=== PATIENT | male | born 1950 | race Caucasian/White ===

== ENCOUNTER → 2017-11-11 | Outpatient (CLI) | payer MEDICARE, BC, SELFPAY | PROVIDERS: Visit Provider Internal Medicine Interventional Cardiology | DX: E78.00 Pure hypercholesterolemia, unspecified (principal) | CPT/HCPCS: 36415; 80061; 80076 ==

== ENCOUNTER 2017-11-25 08:19 | Day surgery (SDC) | payer MEDICARE, BC, SELFPAY ==
[2017-11-18 12:07] VITALS: BMI 23.0
--- NOTE | 2017-11-25 08:42 | SUR.PREOP ---
Asked Julita Cowart CRNA if he wanted labs. AFSHIN did not want them
[2017-11-25 08:54] VITALS: BP 130/72; PULSE 60; RESP 16; TEMP 36.2; O2SAT 98
[2017-11-25 09:00] LABS: POC Glucose,Bedside 121 mg/dL
--- NOTE | 2017-11-25 09:35 | P.PN_ITS ---
[facility] Anesthesia Checklist - Patient Identification Patient Identification: Arm Band - Structural Data Admitted From: Home Planned Operative Procedure/s: excision neoplasm right ear Consent for Planned Operative Procedure(s) Verified: Yes Verified Documents: Surgical Consent, History and Physical - NPO Status Verified Time NPO: 00:00 - Additional verifications Anesthesia Reactions: No - Airway Assessment C-Spine Mobility Assessed: Yes (MP2) TMJ Mobility Assessed: Yes Dentition: Good Dentition - Anesthesia Plan Anesthesia Risk discussed: Yes Anesthesia Plan: Verified ASA Class: III Anesthesia Type: MAC [facility] Anesthesia HX I have reviewed the patient's past medical history: Yes Medical History: Reports:: Coronary Artery Disease, Diabetes Mellitus Type 2 ( NIDDM), Hyperlipidemia, Hypertension, MRSA (NASAL 2013) Denies:: Cancer, Diabetes Mellitus Type 1, Seizures (vagal episode at dentist ) Other Medical History: Denies: Blood Transfusion Reaction Comment: Multiple Coronary Stents Other Surgeries: Yes: Sinus Surgery. No: Pacemaker Amputation: No Fractures: No Comment: Coronary Stents *Family Hx:: Hypertension
[2017-11-25 11:00] VITALS: BP 128/66; PULSE 58; RESP 18; TEMP 36.7; O2SAT 99
[2017-11-25 11:15] VITALS: BP 121/68; PULSE 61; RESP 18; O2SAT 96
--- NOTE | 2017-11-25 13:52 | HMH.OPNOTE ---
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 The perilesional area was infiltrated with 2 cc of 2% lidocaine containing epinephrine. The lesion on the superior aspect of the right ear extending posteriorly was marked out and the key out measured 1.8 cm. The key out was incised and the lesion was excised along the level of the cartilage. An anterior and posterior incisions were made, and a tissue rearrangement Z-plasty repair was done with interrupted 5-0 nylon sutures. A Dermabond dressing was applied. Condition: stable Disposition: same day Complications:: none
--- NOTE | 2017-11-25 13:56 | P.OP_ITS ---
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 The perilesional area was infiltrated with 2 cc of 2% lidocaine containing epinephrine. The lesion on the superior aspect of the right ear extending posteriorly was marked out and the key out measured 1.8 cm. The key out was incised and the lesion was excised along the level of the cartilage. An anterior and posterior incisions were made, and a tissue rearrangement Z-plasty repair was done with interrupted 5-0 nylon sutures. A Dermabond dressing was applied. Condition: stable Disposition: same day Complications:: none
[2017-11-25 14:43] VITALS: BP 123/66; PULSE 60; RESP 18; O2SAT 96
== END 2017-11-25 11:30 | disposition home or self-care (01) ==
LOC: OR 08:23
PROVIDERS: PCP Emergency Medicine; Visit Provider Otolaryngology
DX: C44.212 Basal cell carcinoma of skin of right ear and external auricular canal (principal); Z79.899 Other long term (current) drug therapy
CPT/HCPCS: 14060; 82962; 88305; 96374; 96375

== ENCOUNTER → 2018-02-14 08:56 | Outpatient (CLI) | payer MEDICARE, BC, SELFPAY ==
[2018-02-14 09:18] LABS: Anion Gap 11.2 mEq/L (5-15); Blood Urea Nitrogen 14 mg/dL (7-18); Carbon Dioxide 30 mmol/L (21.0-32.0); Chloride 103 mmol/L (98-107); Estimated Glomerular Filt Rate 97 ml/min (>60); GFR (African American) 117 ML/MIN (>60); Glucose 139 mg/dL (74-106); Potassium 4.2 mmoL/L (3.5-5.1); Sodium 140 mmol/L (136-145)
[2018-02-14 10:47] LABS: Hemoglobin A1C 6.2 % (0.0-7.0)
== END ==
PROVIDERS: Visit Provider Internal Medicine Interventional Cardiology
DX: E11.9 Type 2 diabetes mellitus without complications (principal); I25.10 Atherosclerotic heart disease of native coronary artery without angina pectoris
CPT/HCPCS: 36415; 80048; 83036

== ENCOUNTER → 2018-04-28 08:19 | Outpatient (CLI) | payer MEDICARE, BC, SELFPAY ==
[2018-04-28 10:33] LABS: Alanine Aminotransferase 31 U/L (12-78); Albumin Level 3.7 gm/dL (3.4-5.0); Alkaline Phosphatase 39 U/L (46-116); Aspartate Amino Transferase 17 U/L (15-37); Bilirubin,Direct 0.2 mg/dL (0.0-0.2); Bilirubin,Indirect 0.3 mg/dL (0.0-0.9); Bilirubin,Total 0.5 mg/dL (0.2-1.0); Chol/HDL Ratio 1.5 (1-3.5); Cholesterol 88 mg/dL (140-200); HDL Cholesterol 59 mg/dL (27-67); LDL Cholesterol 20 mg/dL (0-130); Total Protein,Serum 6.4 gm/dL (6.4-8.2); Triglycerides 46 mg/dL (30-200); VLDL Cholesterol 9 mg/dL (0-40)
== END ==
PROVIDERS: Visit Provider Internal Medicine Interventional Cardiology
DX: E78.5 Hyperlipidemia, unspecified (principal)
CPT/HCPCS: 36415; 80061; 80076

== ENCOUNTER → 2018-10-18 10:29 | Outpatient (CLI) | payer MEDICARE, BC, SELFPAY ==
[2018-10-18 11:31] LABS: Bilirubin,Direct 0.2 mg/dL (0.0-0.2)
[2018-10-18 11:41] LABS: Basophils % 0.5 % (0.1-2.0); Eosinophils # 0.1 K/mm3 (0.0-0.4); Eosinophils % 2.9 % (0.1-12.0); Hematocrit 45.4 % (42.0-52.0); Hemoglobin 14.6 g/dL (14.1-18.0); Lymphocytes # 1.6 K/mm3 (0.7-4.5); Lymphocytes % 34.9 % (10-50); Mean Corpuscular HGB Conc 32.1 g/dL (31.8-35.4); Mean Corpuscular Hemoglobin 31.9 pg (27.0-31.2); Mean Corpuscular Volume 99.4 fl (80-94); Mean Platelet Volume 6.8 fl (7.4-10.4); Monocytes # 0.3 K/mm3 (0.1-1.0); Neutrophils # 2.5 K/mm3 (1.8-7.8); Neutrophils % 55.6 % (37.0-80.0); Platelet Count 223 K/mm3 (142-424); Red Blood Count 4.56 M/mm3 (4.60-6.20); Red Cell Distribution Width 13.2 % (11.5-17.5); White Blood Count 4.5 K/mm3 (4.8-10.8)
[2018-10-18 11:45] LABS: Hemoglobin A1C 6.2 % (0.0-7.0)
[2018-10-18 11:56] LABS: Alanine Aminotransferase 39 U/L (12-78); Albumin/Globulin Ratio 1.4 (1.1-1.8); Alkaline Phosphatase 41 U/L (46-116); Anion Gap 13.6 mEq/L (5-15); Aspartate Amino Transferase 16 U/L (15-37); Bilirubin,Total 0.7 mg/dL (0.2-1.0); Blood Urea Nitrogen 9 mg/dL (7-18); Carbon Dioxide 28 mmol/L (21.0-32.0); Chloride 101 mmol/L (98-107); Chol/HDL Ratio 1.7 (1-3.5); Cholesterol 114 mg/dL (140-200); Creatinine,Serum 0.76 mg/dL (0.70-1.30); Estimated Glomerular Filt Rate 102 ml/min (>60); Free T4 (Free Thyroxine) 0.76 ng/dl (0.76-1.46); GFR (African American) 124 ML/MIN (>60); Globulin 2.9 gm/dl (1.3-3.2); Glucose 128 mg/dL (74-106); HDL Cholesterol 66 mg/dL (27-67); LDL Cholesterol 36 mg/dL (0-130); Potassium 4.6 mmoL/L (3.5-5.1); Sodium 138 mmol/L (136-145); Thyroid Stimulating Hormone 0.89 uIU/ml (0.358-3.740); Total Protein,Serum 6.9 gm/dL (6.4-8.2); Triglycerides 60 mg/dL (30-200); VLDL Cholesterol 12 mg/dL (0-40)
[2018-10-19 12:20] LABS: Hep A Ab, IgM Negative (Negative); Hepatitis B Core Antibody IgM Negative (Negative); Hepatitis B Surface Antigen Negative (Negative)
[2018-10-19 14:22] LABS: Hepatitis C Antibody <0.1 s/co ratio (0.0-0.9); PSA, Free 0.38 ng/mL; Prostate Specific Ag 1.9 ng/mL (0.0-4.0); Vitamin D 25 Hydroxy 32.8 ng/mL (30.0-100.0)
== END ==
PROVIDERS: Internal Medicine Interventional Cardiology; Visit Provider Emergency Medicine
DX: E78.00 Pure hypercholesterolemia, unspecified (principal); Z79.899 Other long term (current) drug therapy; E11.9 Type 2 diabetes mellitus without complications; R53.83 Other fatigue; I25.10 Atherosclerotic heart disease of native coronary artery without angina pectoris
CPT/HCPCS: 36415; 80053; 80061; 80074; 82248; 82652; 83036; 84153; 84154; 84439; 84443; 85025

== ENCOUNTER → 2019-01-07 11:06 | Outpatient (CLI) | payer MEDICARE, BC, SELFPAY ==
[2019-01-07 12:56] LABS: Alanine Aminotransferase 41 U/L (12-78); Albumin Level 3.9 gm/dL (3.4-5.0); Alkaline Phosphatase 46 U/L (46-116); Aspartate Amino Transferase 17 U/L (15-37); Bilirubin,Direct 0.2 mg/dL (0.0-0.2); Bilirubin,Indirect 0.6 mg/dL (0.0-0.9); Bilirubin,Total 0.8 mg/dL (0.2-1.0); Chol/HDL Ratio 2.8 (1-3.5); Cholesterol 148 mg/dL (140-200); HDL Cholesterol 53 mg/dL (27-67); LDL Cholesterol 75 mg/dL (0-130); Total Protein,Serum 6.9 gm/dL (6.4-8.2); Triglycerides 99 mg/dL (30-200); VLDL Cholesterol 20 mg/dL (0-40)
== END ==
PROVIDERS: Visit Provider Internal Medicine Interventional Cardiology
DX: E78.00 Pure hypercholesterolemia, unspecified (principal)
CPT/HCPCS: 36415; 80061; 80076

== ENCOUNTER → 2019-04-06 08:29 | Outpatient (CLI) | payer MEDICARE, BC, SELFPAY ==
[2019-04-06 10:13] LABS: Alanine Aminotransferase 33 U/L (12-78); Albumin Level 3.7 gm/dL (3.4-5.0); Alkaline Phosphatase 37 U/L (46-116); Aspartate Amino Transferase 15 U/L (15-37); Bilirubin,Direct 0.1 mg/dL (0.0-0.2); Bilirubin,Indirect 0.5 mg/dL (0.0-0.9); Bilirubin,Total 0.6 mg/dL (0.2-1.0); Chol/HDL Ratio 3.2 (1-3.5); Cholesterol 154 mg/dL (140-200); HDL Cholesterol 48 mg/dL (27-67); LDL Cholesterol 82 mg/dL (0-130); Total Protein,Serum 6.4 gm/dL (6.4-8.2); Triglycerides 122 mg/dL (30-200); VLDL Cholesterol 24 mg/dL (0-40)
== END ==
PROVIDERS: Visit Provider Internal Medicine Interventional Cardiology
DX: E78.00 Pure hypercholesterolemia, unspecified (principal)
CPT/HCPCS: 36415; 80061; 80076

== ENCOUNTER → 2019-04-24 17:11 | Outpatient (CLI) | payer MEDICARE, BC, SELFPAY ==
[2019-04-24 18:04] LABS: Basophils % 0.9 % (0.1-2.0); Eosinophils # 0.2 K/mm3 (0.0-0.4); Eosinophils % 3.9 % (0.1-12.0); Hemoglobin 14.3 g/dL (14.1-18.0); Lymphocytes # 1.8 K/mm3 (0.7-4.5); Mean Corpuscular HGB Conc 32.6 g/dL (31.8-35.4); Mean Corpuscular Hemoglobin 30.7 pg (27.0-31.2); Mean Corpuscular Volume 94.2 fl (80-94); Mean Platelet Volume 8.6 fl (7.4-10.4); Monocytes # 0.3 K/mm3 (0.1-1.0); Monocytes % 6.9 % (1.7-9.3); Neutrophils # 2.5 K/mm3 (1.8-7.8); Neutrophils % 51.3 % (37.0-80.0); Platelet Count 226 K/mm3 (142-424); Red Blood Count 4.67 M/mm3 (4.60-6.20); Red Cell Distribution Width 12.5 % (11.5-17.5); White Blood Count 4.8 K/mm3 (4.8-10.8)
== END ==
PROVIDERS: Visit Provider Emergency Medicine
DX: E11.9 Type 2 diabetes mellitus without complications (principal); Z79.84 Long term (current) use of oral hypoglycemic drugs
CPT/HCPCS: 83036; 85025

== ENCOUNTER → 2019-08-15 08:31 | Outpatient (CLI) | payer MEDICARE, BC, SELFPAY ==
[2019-08-15 10:41] LABS: Alanine Aminotransferase 58 U/L (12-78); Albumin Level 3.9 gm/dL (3.4-5.0); Alkaline Phosphatase 39 U/L (46-116); Aspartate Amino Transferase 25 U/L (15-37); Bilirubin,Direct 0.1 mg/dL (0.0-0.2); Bilirubin,Indirect 0.4 mg/dL (0.0-0.9); Bilirubin,Total 0.5 mg/dL (0.2-1.0); Chol/HDL Ratio 3.3 (1-3.5); Cholesterol 168 mg/dL (140-200); HDL Cholesterol 51 mg/dL (27-67); LDL Cholesterol 96 mg/dL (0-130); Total Protein,Serum 6.9 gm/dL (6.4-8.2); Triglycerides 103 mg/dL (30-200); VLDL Cholesterol 21 mg/dL (0-40)
== END ==
PROVIDERS: Visit Provider Internal Medicine Interventional Cardiology
DX: E78.00 Pure hypercholesterolemia, unspecified (principal)
CPT/HCPCS: 36415; 80061; 80076

== ENCOUNTER → 2020-01-01 10:29 | Outpatient (CLI) | payer MEDICARE, BC, SELFPAY ==
[2020-01-01 12:12] LABS: Alanine Aminotransferase 31 U/L (21-72); Albumin Level 3.9 g/dL (3.4-5.0); Alkaline Phosphatase 37 U/L (46-116); Aspartate Amino Transferase 18 U/L (15-37); Bilirubin,Direct 0.1 mg/dL (0.0-0.2); Bilirubin,Indirect 0.4 mg/dL (0.0-0.9); Bilirubin,Total 0.5 mg/dL (0.2-1.0); Chol/HDL Ratio 2.7 (1-3.5); Cholesterol 153 mg/dL (140-200); HDL Cholesterol 56 mg/dL (27-67); LDL Cholesterol 79 mg/dL (0-130); Total Protein,Serum 6.9 g/dL (6.4-8.2); Triglycerides 90 mg/dL (30-200); VLDL Cholesterol 18 mg/dL (0-40)
== END ==
PROVIDERS: Visit Provider Nurse Practitioner Acute Care
DX: E78.00 Pure hypercholesterolemia, unspecified (principal)
CPT/HCPCS: 36415; 80061; 80076

== ENCOUNTER → 2020-05-29 07:46 | Outpatient (CLI) | payer MEDICARE, BC, SELFPAY ==
[2020-05-29 08:51] LABS: Alanine Aminotransferase 27 U/L (12-78); Alkaline Phosphatase 33 U/L (38-126); Aspartate Amino Transferase 26 U/L (17-59); Bilirubin,Direct 0.1 mg/dl (0.0-0.4); Bilirubin,Indirect 0.7 mg/dL (0.0-0.9); Bilirubin,Total 0.8 mg/dl (0.2-1.3); Bilirubin,Unconjugated 0.7 mg/dL (0.0-1.1); Cholesterol 156 mg/dl (140-200); Triglycerides 108 mg/dl (30-150); VLDL Cholesterol 22 mg/dL (0-40)
[2020-05-29 08:52] LABS: Albumin Level 4.2 g/dl (3.5-5.0); Chol/HDL Ratio 2.6 (1-3.5); HDL Cholesterol 61 mg/dl (40-60); Total Protein,Serum 6.6 g/dl (6.3-8.2)
== END ==
PROVIDERS: Visit Provider Internal Medicine Interventional Cardiology
DX: E78.00 Pure hypercholesterolemia, unspecified (principal)
CPT/HCPCS: 36415; 80061; 80076

== ENCOUNTER → 2020-08-15 09:05 | Outpatient (CLI) | payer MEDICARE, BC, SELFPAY ==
[2020-08-15 11:10] LABS: Alanine Aminotransferase 30 U/L (12-78); Albumin Level 4.2 g/dl (3.5-5.0); Alkaline Phosphatase 30 U/L (38-126); Aspartate Amino Transferase 26 U/L (17-59); Bilirubin,Direct 0.1 mg/dl (0.0-0.4); Bilirubin,Indirect 0.5 mg/dL (0.0-0.9); Bilirubin,Total 0.6 mg/dl (0.2-1.3); Bilirubin,Unconjugated 0.5 mg/dL (0.0-1.1); Chol/HDL Ratio 1.5 (1-3.5); Cholesterol 91 mg/dl (140-200); HDL Cholesterol 59 mg/dl (40-60); Total Protein,Serum 6.7 g/dl (6.3-8.2); Triglycerides 84 mg/dl (30-150); VLDL Cholesterol 17 mg/dL (0-40)
[2020-08-15 11:27] LABS: Direct LDL Cholesterol < 30.00 mg/dL (100-129)
== END ==
PROVIDERS: Visit Provider Internal Medicine Interventional Cardiology
DX: E78.00 Pure hypercholesterolemia, unspecified (principal)
CPT/HCPCS: 36415; 80061; 80076

== ENCOUNTER → 2020-08-26 15:16 | Outpatient (CLI) | payer MEDICARE, BC, SELFPAY ==
[2020-08-26 15:54] LABS: Basophils % 0.7 % (0.1-2.0); Eosinophils # 0.2 K/mm3 (0.0-0.4); Eosinophils % 3.5 % (0.1-12.0); Hematocrit 44.7 % (42.0-52.0); Hemoglobin 14.3 g/dL (14.1-18.0); Lymphocytes # 1.7 K/mm3 (0.7-4.5); Mean Corpuscular HGB Conc 32.1 g/dL (31.8-35.4); Mean Corpuscular Hemoglobin 32.2 pg (27.0-31.2); Mean Corpuscular Volume 100.3 fl (80-94); Monocytes # 0.3 K/mm3 (0.1-1.0); Monocytes % 6.1 % (1.7-9.3); Neutrophils % 56.7 % (37.0-80.0); Platelet Count 246 K/mm3 (142-424); Red Blood Count 4.46 M/mm3 (4.60-6.20); Red Cell Distribution Width 12.7 % (11.5-17.5); White Blood Count 5.2 K/mm3 (4.8-10.8)
[2020-08-26 16:00] LABS: Alanine Aminotransferase 28 U/L (12-78); Albumin Level 4.4 g/dl (3.5-5.0); Albumin/Globulin Ratio 1.7 (1.1-1.8); Alkaline Phosphatase 45 U/L (38-126); Anion Gap 14.7 mEq/L (5-15); Aspartate Amino Transferase 30 U/L (17-59); Bilirubin,Total 0.8 mg/dl (0.2-1.3); Blood Urea Nitrogen 9 mg/dl (9-20); Calcium 9.6 mg/dl (8.4-10.2); Carbon Dioxide 28 mmol/L (22.0-30.0); Chloride 98 mmol/L (98-107); Chol/HDL Ratio 1.4 (1-3.5); Cholesterol 95 mg/dl (140-200); Estimated Glomerular Filt Rate 112 ml/min (>60); GFR (African American) 136 ML/MIN (>60); Globulin 2.6 g/dL (1.3-3.2); Glucose 121 mg/dl (74-100); HDL Cholesterol 67 mg/dl (40-60); Potassium 4.7 mmoL/L (3.5-5.1); Sodium 136 mmol/L (136-145); Triglycerides 58 mg/dl (30-150); VLDL Cholesterol 12 mg/dL (0-40)
[2020-08-26 16:15] LABS: Direct LDL Cholesterol < 30.00 mg/dL (100-129)
[2020-08-26 16:30] LABS: Thyroid Stimulating Hormone 1.06 uIU/mL (0.465-4.68)
[2020-08-26 16:42] LABS: Free T4 (Free Thyroxine) 0.95 ng/dl (0.78-2.19)
[2020-08-26 16:43] LABS: 25-OH Vitamin D, Total 35.5 ng/mL (30-100)
[2020-08-26 16:52] LABS: Hemoglobin A1C 6.1 % (4.0-6.0)
== END ==
PROVIDERS: Visit Provider Emergency Medicine
DX: E11.9 Type 2 diabetes mellitus without complications (principal); E55.9 Vitamin D deficiency, unspecified; Z79.84 Long term (current) use of oral hypoglycemic drugs
CPT/HCPCS: 80053; 80061; 82306; 83036; 84439; 84443; 85025

== ENCOUNTER → 2021-03-10 08:47 | Outpatient (CLI) | payer MEDICARE, BC, SELFPAY ==
[2021-03-10 09:51] LABS: Bilirubin,Unconjugated 0.6 mg/dL (0.0-1.1)
[2021-03-10 09:52] LABS: Alanine Aminotransferase 34 U/L (12-78); Albumin Level 4.7 g/dl (3.5-5.0); Alkaline Phosphatase 45 U/L (38-126); Aspartate Amino Transferase 27 U/L (17-59); Bilirubin,Direct 0.1 mg/dl (0.0-0.4); Bilirubin,Indirect 0.6 mg/dL (0.0-0.9); Bilirubin,Total 0.7 mg/dl (0.2-1.3); Chol/HDL Ratio 1.6 (1-3.5); Cholesterol 98 mg/dl (140-200); HDL Cholesterol 61 mg/dl (40-60); Triglycerides 91 mg/dl (30-150); VLDL Cholesterol 18 mg/dL (0-40)
[2021-03-10 09:53] LABS: Hemoglobin A1C 6.4 % (4.0-6.0)
[2021-03-10 10:12] LABS: Direct LDL Cholesterol < 30.00 mg/dL (100-129)
== END ==
PROVIDERS: Visit Provider Internal Medicine Interventional Cardiology
DX: E78.00 Pure hypercholesterolemia, unspecified (principal); E11.9 Type 2 diabetes mellitus without complications; Z79.84 Long term (current) use of oral hypoglycemic drugs
CPT/HCPCS: 36415; 80061; 80076; 83036

== ENCOUNTER → 2021-04-23 09:35 | Outpatient (CLI) | payer MEDICARE, BC, SELFPAY ==
[2021-04-23 10:46] LABS: Chol/HDL Ratio 1.6 (1-3.5); Cholesterol 94 mg/dl (140-200); HDL Cholesterol 59 mg/dl (40-60); Triglycerides 92 mg/dl (30-150); VLDL Cholesterol 18 mg/dL (0-40)
[2021-04-23 10:58] LABS: Direct LDL Cholesterol < 30.00 mg/dL (100-129)
== END ==
PROVIDERS: Visit Provider Internal Medicine Interventional Cardiology
DX: E11.9 Type 2 diabetes mellitus without complications (principal); Z79.84 Long term (current) use of oral hypoglycemic drugs
CPT/HCPCS: 36415; 80061

== ENCOUNTER 2021-04-26 16:51 | Emergency (ER) | payer MEDICARE, BC, SELFPAY ==
[2021-04-26 16:55] VITALS: BP 148/73; PULSE 75; RESP 19; TEMP 36.8; O2SAT 99; BMI 23.0
[2021-04-26 18:12] VITALS: BP 148/73; PULSE 75; RESP 19; TEMP 36.8; O2SAT 99
--- NOTE | 2021-04-26 18:24 | HMH.EDUTC ---
[facility] [place] Disposition Clinical Impression: Laceration Disposition: Home, Self-Care Condition on Discharge: Good Instructions: Laceration Repair, DI for Laceration Repair Additional Instructions: Suture instructions: You have required stitches today. Please read the following instructions so you know how to care for them: 1. Keep wound area dry for the first 24 hours. 2 May clean gently with mild soap and water, after 48 hours to prevent crusting over suture knots. 3. You may shower if your provider gives permission but do not take a bath until the skin is healed.. 4. Never leave a wet dressing or Band-Aid on your stitches as this allows bacteria to reach the area and may cause infection. Band-aids can cause the wound to sweat and not recommended to wear for long periods of time Watch for signs of infection: Increasing redness, tenderness or warmth around the suture site Unusual swelling around the site Appearance of pus around each suture or any red streaks Fever If you develop any of the above signs or symptoms of infection, Follow up with Family Physician immediately 5. Suture removal in _10-14___days 6. Return to [facility] or follow up with family doctor for removal. This can be done by any medical provider during regular hours on Wednesday through Wednesday, by appointment. Prescriptions: Amoxicillin/Potassium Clav [Augmentin 500mg tab] 1 tab PO TID 5 Days #15 tab Transmission Status: Received by [id number] Referrals: Magdaleno Dias MD [Primary Care Provider] - As needed Medical Decision Making - Santiago Inquiry Pt receiving controlled substance: No Santiago was queried for this patient: No Vital Signs: 04/26/21 16:55 04/26/21 18:12 Temperature 98.3 F 98.3 F Temperature Source Oral Pulse Rate 75 Pulse Rate [Right Brachial] 75 Respiratory Rate 19 19 Blood Pressure 148/73 H Blood Pressure [Right Arm] 148/73 H Blood Pressure Mean [Right Arm] 98 Blood Pressure Source [Right Arm] Automatic Cuff Blood Pressure Position [Right Arm] Sitting 02 Sat by Pulse Oximetry 99 Oxygen Delivery Method Room Air Orders (Tests/Meds): ED MEDICATIONS Discontinued Medications Generic Name Dose Route Start Last Admin Trade Name Freq PRN Reason Stop Dose Admin Amoxicillin/Clavulanate Potassium 1 each 04/26/21 18:31 04/26/21 18:33 Amoxicillin/Pot Clavulan 500mg Tablet PO 04/26/21 18:32 1 each ONCE ONE Administration Protocol Tetanus/Reduced Diphtheria/Acell Pertussis 0.5 ml 04/26/21 18:20 04/26/21 18:25 Tet/Diphth/Pert-Adult 0.5ml Syringe IM 04/26/21 18:21 0.5 ml .ONCE ONE Administration Medical Decision Narrative: Discussed xray of knee and patient declined states that when he tripped the under trimmer is electric and hit him in the left knee causing laceration wound irrigated well and closed with sutures wound edges approximated well Patient reports that he has taken Augmentin in the past without complications or reactions [facility] HPI - General Stated complaint: [id number] cut left knee Time Seen by Provider: 04/26/21 17:30 Mode of Arrival: Ambulatory Source of Information: Patient Limitations: No Limitations Description of Symptoms (Recalled from Triage Doc. by RN): PATIENT C/O LACERATION TO LEFT KNEE AFTER CUTTING IT WITH GRADUATE INTERN TODAY HEENT Symptoms (Recalled from RN notes): No Resp Symptoms (Recalled from RN notes): No Skin Symptoms (Recalled from RN notes): No MS Symptoms (Recalled from RN notes): No Functional Status (Recalled from RN notes): WNL - History of Present Illness Provider Complaint: Patient states that he was using under trimmer earlier and tripped and hit his knee with the mitzy and the under trimmer caused laceration to his left knee States that he got the bleeding under control and cleaned it up and noticed that he may need stitches and tetanus - Related Data Home Medications Medication Instructions Recorded Confirmed Lisinopril
== END 2021-04-26 18:30 | disposition home or self-care (01) ==
PROVIDERS: Emergency Provider Nurse Practitioner; PCP Emergency Medicine
DX: S81.012A Laceration without foreign body, left knee, initial encounter (principal); W29.3XXA Contact with powered garden and outdoor hand tools and machinery, initial encounter; Y92.017 Garden or yard in single-family (private) house as the place of occurrence of the external cause; I10 Essential (primary) hypertension; E11.9 Type 2 diabetes mellitus without complications; E78.5 Hyperlipidemia, unspecified; Z23 Encounter for immunization
CPT/HCPCS: 12002; G0463; 90471; 90715; 99202

== ENCOUNTER → 2021-11-06 10:12 | Outpatient (CLI) | payer MEDICARE, BC, SELFPAY ==
[2021-11-06 11:07] LABS: Hemoglobin A1C 5.9 % (4.0-6.0)
[2021-11-06 11:12] LABS: Chloride 97 mmol/L (98-107); Sodium 134 mmol/L (136-145)
[2021-11-06 11:13] LABS: Potassium 4.5 mmoL/L (3.5-5.1)
[2021-11-06 11:15] LABS: Alanine Aminotransferase 33 U/L (12-78); Albumin Level 4.5 g/dl (3.5-5.0); Alkaline Phosphatase 40 U/L (38-126); Anion Gap 12.5 mEq/L (5-15); Aspartate Amino Transferase 29 U/L (17-59); Bilirubin,Direct 0.1 mg/dl (0.0-0.4); Bilirubin,Indirect 0.7 mg/dL (0.0-0.9); Bilirubin,Total 0.8 mg/dl (0.2-1.3); Bilirubin,Unconjugated 0.7 mg/dL (0.0-1.1); Blood Urea Nitrogen 12 mg/dl (9-20); Calcium 9.5 mg/dl (8.4-10.2); Carbon Dioxide 29 mmol/L (22.0-30.0); Cholesterol 151 mg/dl (140-200); Estimated Glomerular Filt Rate 111 ml/min (>60); GFR (African American) 135 ML/MIN (>60); Glucose 126 mg/dl (74-100); Total Protein,Serum 7.1 g/dl (6.3-8.2); Triglycerides 90 mg/dl (30-150); VLDL Cholesterol 18 mg/dL (0-40)
[2021-11-06 11:16] LABS: Chol/HDL Ratio 2.8 (1-3.5); HDL Cholesterol 54 mg/dl (40-60)
[2021-11-06 11:27] LABS: Direct LDL Cholesterol 84.67 mg/dL (100-129)
== END ==
PROVIDERS: Visit Provider Internal Medicine Interventional Cardiology
DX: E78.00 Pure hypercholesterolemia, unspecified (principal); E11.9 Type 2 diabetes mellitus without complications; Z79.84 Long term (current) use of oral hypoglycemic drugs
CPT/HCPCS: 36415; 80048; 80061; 80076; 83036

== ENCOUNTER → 2022-08-31 14:18 | Outpatient (CLI) | payer MEDICARE, BC, SELFPAY ==
[2022-08-31 13:37] LABS: Basophils % 0.9 % (0.1-2.0); Eosinophils # 0.1 K/mm3 (0.0-0.4); Eosinophils % 2.4 % (0.1-12.0); Hemoglobin 14.8 g/dL (14.1-18.0); Lymphocytes # 1.6 K/mm3 (0.7-4.5); Lymphocytes % 32.5 % (10-50); Mean Corpuscular Hemoglobin 33.8 pg (27.0-31.2); Mean Corpuscular Volume 102.5 fl (80-94); Mean Platelet Volume 8.3 fl (7.4-10.4); Monocytes # 0.4 K/mm3 (0.1-1.0); Neutrophils # 2.7 K/mm3 (1.8-7.8); Neutrophils % 56.3 % (37.0-80.0); Platelet Count 306 K/mm3 (142-424); Red Blood Count 4.39 M/mm3 (4.60-6.20); Red Cell Distribution Width 13.1 % (11.5-17.5); White Blood Count 4.8 K/mm3 (4.8-10.8)
[2022-08-31 13:42] LABS: Alanine Aminotransferase 41 U/L (12-78); Albumin Level 4.7 g/dl (3.5-5.0); Albumin/Globulin Ratio 1.7 (1.1-1.8); Alkaline Phosphatase 57 U/L (38-126); Anion Gap 18.5 mEq/L (5-15); Aspartate Amino Transferase 43 U/L (17-59); Blood Urea Nitrogen 15 mg/dl (9-20); Calcium 9.6 mg/dl (8.4-10.2); Carbon Dioxide 27 mmol/L (22.0-30.0); Chloride 95 mmol/L (98-107); Chol/HDL Ratio 2.6 (1-3.5); Cholesterol 132 mg/dl (140-200); Estimated Glomerular Filt Rate 96 ml/min (>60); GFR (African American) 116 ML/MIN (>60); Globulin 2.8 g/dL (1.3-3.2); Glucose 134 mg/dl (74-100); HDL Cholesterol 50 mg/dl (40-60); Potassium 5.5 mmoL/L (3.5-5.1); Sodium 135 mmol/L (136-145); Total Protein,Serum 7.5 g/dl (6.3-8.2); Triglycerides 188 mg/dl (30-150); VLDL Cholesterol 38 mg/dL (0-40)
[2022-08-31 13:53] LABS: Direct LDL Cholesterol 53.77 mg/dL (100-129)
[2022-08-31 13:58] LABS: Free T4 (Free Thyroxine) 0.79 ng/dl (0.78-2.19)
[2022-08-31 13:59] LABS: 25-OH Vitamin D, Total 23.5 ng/mL (30-100)
[2022-08-31 14:04] LABS: Hemoglobin A1C 5.8 % (4.0-6.0)
[2022-08-31 14:13] LABS: Prostate Specific Ag Screen 2.7 ng/ml (0.0-4.0); Thyroid Stimulating Hormone 1.62 uIU/mL (0.465-4.68)
== END ==
PROVIDERS: PCP Emergency Medicine; Visit Provider Emergency Medicine
DX: E11.9 Type 2 diabetes mellitus without complications (principal); Z12.5 Encounter for screening for malignant neoplasm of prostate; E55.9 Vitamin D deficiency, unspecified; Z79.84 Long term (current) use of oral hypoglycemic drugs
CPT/HCPCS: 80053; 80061; 82306; 83036; 84439; 84443; 85025; G0103

== ENCOUNTER 2022-09-26 17:56 | Emergency (ER) | payer MEDICARE, BC, SELFPAY ==
--- NOTE | 2022-09-26 18:48 | PC.NURSE ---
PT TO BR TO PROVIDE UA
[2022-09-26 18:55] VITALS: BP 148/92; PULSE 70; RESP 17; TEMP 36.7; O2SAT 96; BMI 23.0
--- NOTE | 2022-09-26 19:28 | PC.NURSE ---
ED MD AT BEDSIDE FOR EVALUATION
--- NOTE | 2022-09-26 19:42 | CT_ITS ---
PROCEDURE INFORMATION: Exam: CT Abdomen And Pelvis With Contrast Exam date and time: 09/26/2022 8:59 PM Age: 72 years old Clinical indication: Abdominal pain; Localized; Patient HX: Concern for left-sided spigelian hernia, C/O lt side abd pain and nausea TECHNIQUE: Imaging protocol: Computed tomography of the abdomen and pelvis with contrast. Radiation optimization: All CT scans at this facility use at least one of these dose optimization techniques: automated exposure control; mA and/or kV adjustment per patient size (includes targeted exams where dose is matched to clinical indication); or iterative reconstruction. Contrast material: ISOVUE; Contrast volume: 75 ml; Contrast route: IV; COMPARISON: No relevant prior studies available. FINDINGS: Lungs: Subsegmental atelectasis noted. Liver: No focal hepatic lesions. Geographic hypodensity in right hepatic lobe attributed to hepatic steatosis. Gallbladder and bile ducts: Gallbladder is distended without radiopaque cholelithiasis. No biliary ductal dilation. Pancreas: No peripancreatic fluid stranding. No main pancreatic ductal dilation. Spleen: No splenomegaly. Adrenal glands: The adrenal glands are normal. Kidneys and ureters: Nephrograms are symmetric. No nephrolithiasis or hydroureteronephrosis on either side. No solid lesions Stomach and bowel: Unremarkable. No obstruction. No mucosal thickening. Appendix: A normal appendix is not well visualized. However, no evidence of inflammatory changes in the right lower quadrant to suggest acute appendicitis. Intraperitoneal space: There is no evidence of free intraperitoneal or pelvic fluid. Vasculature: Hyperattenuating material in the coronary tree likely a combination of vascular stents in atherosclerosis. The aorta demonstrates moderate atherosclerotic calcification. Lymph nodes: No evidence of retroperitoneal or mesenteric lymphadenopathy Urinary bladder: Urinary bladder is unremarkable. Reproductive: Unremarkable as visualized. Bones/joints: See Soft tissues finding. Soft tissues: No evidence of ventral hernia. multilevel degenerative changes of the included spine. No acute osseous abnormality. IMPRESSION: No acute abnormality in the abdomen or pelvis
[2022-09-26 19:47] LABS: Microscopic, Urine URINE MICROSCOPIC (MICROSCOPIC)
[2022-09-26 19:49] LABS: Appearance,Urine CLEAR (Clear); Bilirubin,Urine Negative (Negative); Blood, Urine Negative (Negative); Color,Urine YELLOW (Yellow); Glucose,Urine (UA) Negative (Negative); Ketones,Urine Negative (Negative); Leukocyte Esterase,Urine Negative (Negative); Nitrate,Urine Negative (Negative); Protein,Urine Negative (Negative); Specific Gravity, Urine 1.025 (1.005-1.030); Urobilinogen,Urine 0.2 EU/dl (0.2)
[2022-09-26 19:54] LABS: Alanine Aminotransferase 40 U/L (12-78); Albumin Level 4.2 g/dl (3.5-5.0); Albumin/Globulin Ratio 1.5 (1.1-1.8); Alkaline Phosphatase 62 U/L (38-126); Anion Gap 16.1 mEq/L (5-15); Aspartate Amino Transferase 35 U/L (17-59); Bilirubin,Total 0.3 mg/dl (0.2-1.3); Blood Urea Nitrogen 14 mg/dl (9-20); Calcium 9.6 mg/dl (8.4-10.2); Carbon Dioxide 30 mmol/L (22.0-30.0); Chloride 86 mmol/L (98-107); Creatinine Clearance Estimated 72 mL/min (50-200); Estimated Glomerular Filt Rate 111 ml/min (>60); GFR (African American) 135 ML/MIN (>60); Globulin 2.8 g/dL (1.3-3.2); Glucose 139 mg/dl (74-100); Lipase 60 U/L (23-300); Potassium 4.1 mmoL/L (3.5-5.1); Sodium 128 mmol/L (136-145)
[2022-09-26 19:59] LABS: C-Reactive Protein 2.9 mg/L (0-4)
[2022-09-26 20:04] LABS: Bacteria,Urine 1+ /lpf; Mucus,Urine 1+ /lpf; Squamous Epithelial Cell,Urine Occasional #/hpf (0-5)
--- NOTE | 2022-09-26 20:05 | PC.NURSE ---
PT TO RADIOLOGY AT THIS TIME
[2022-09-26 20:08] LABS: Basophils # 0.1 K/mm3 (0-0.2); Basophils % 0.7 % (0.1-2.0); Eosinophils # 0.1 K/mm3 (0.0-0.4); Eosinophils % 1.7 % (0.1-12.0); Hematocrit 40.6 % (42.0-52.0); Hemoglobin 13.5 g/dL (14.1-18.0); Lymphocytes # 1.6 K/mm3 (0.7-4.5); Lymphocytes % 24.1 % (10-50); Mean Corpuscular HGB Conc 33.2 g/dL (31.8-35.4); Mean Corpuscular Hemoglobin 32.6 pg (27.0-31.2); Mean Corpuscular Volume 98.1 fl (80-94); Mean Platelet Volume 8.3 fl (7.4-10.4); Monocytes # 0.5 K/mm3 (0.1-1.0); Monocytes % 7.1 % (1.7-9.3); Neutrophils # 4.3 K/mm3 (1.8-7.8); Neutrophils % 66.3 % (37.0-80.0); Platelet Count 317 K/mm3 (142-424); Red Blood Count 4.14 M/mm3 (4.60-6.20); Red Cell Distribution Width 12.8 % (11.5-17.5); White Blood Count 6.4 K/mm3 (4.8-10.8)
[2022-09-26 20:57] VITALS: BP 137/67; PULSE 70; RESP 18; TEMP 36.7; O2SAT 98
--- NOTE | 2022-09-26 21:36 | HMH.EDGENADL ---
Discharge Plan Disposition Patient Disposition: Home, Self-Care Condition: Good Prescriptions Prescriptions: No Action spironolactone 25 mg tablet 25 mg PO DAILY loratadine [Allergy Relief (loratadine)] 10 mg tablet 10 mg PO DAILY prasugrel 10 mg tablet 10 mg PO DAILY meclizine 25 mg tablet 25 mg PO DAILY PRN Praluent Pen 150 mg/mL pen injector 150 mg SQ Q14D prasugrel [Effient] 10 mg tablet 10 mg PO DAILY atorvastatin 80 mg tablet 80 mg PO DAILY Qty: 30 0RF Rx Instructions: patient needs an appointment before anymore refills metoprolol tartrate 50 mg tablet See Rx Instructions .ROUTE .COMPLEX Qty: 180 0RF Dose Instruction: TAKE 1 TABLET BY MOUTH TWICE DAILY . APPOINTMENT REQUIRED FOR FUTURE REFILLS Rx Instructions: TAKE 1 TABLET BY MOUTH TWICE DAILY . APPOINTMENT REQUIRED FOR FUTURE REFILLS metformin 500 mg tablet See Rx Instructions .ROUTE .COMPLEX Qty: 180 0RF Dose Instruction: TAKE 1 TABLET BY MOUTH TWICE DAILY FOR DIABETES Rx Instructions: TAKE 1 TABLET BY MOUTH TWICE DAILY FOR DIABETES ergocalciferol (vitamin D2) 1,250 mcg (50,000 unit) capsule 1,250 mcg PO WEEKLY Qty: 13 3RF cholecalciferol (vitamin D3) 50 mcg (2,000 unit) capsule 50 mcg PO DAILY Qty: 90 3RF Paxlovid (EUA) 300 mg (150 mg x 2)-100 mg tablets,dose pack See Rx Instructions PO .COMPLEX Qty: 30 0RF Rx Instructions: take TWO 150 mg tablets of nirmatrelvir with ONE 100 mg tablet of ritonavir twice daily for 5 days PO ondansetron 8 mg tablet,disintegrating 8 mg PO Q8H PRN (Reason: nausea and vomiting) Qty: 20 0RF lisinopril-hydrochlorothiazide 1 EACH tablet 1 tab PO DAILY aspirin 81 mg tablet,delayed release (DR/EC) 162 mg PO .every 3rd day Referrals Follow up/Referrals: Magdaleno Dias MD [Primary Care Provider] - See instructions Kenneth Goddard MD [Staff Physician] - See instructions Activity Restrictions/Add. Instructions Additional Instructions/Restrictions: Recommend taking Pepcid twice daily 20 mg each time for the next 2 weeks Clinical Impressions Clinical Impression: Abdominal pain Instructions Patient Instructions: DI for Acute Abdominal Pain Discharge ED Provider: Melara,All C General Adult HPI General Chief complaint: Abdominal Pain Stated complaint: abd pain, knot on stomach Time Seen by Provider: 09/26/22 19:00 Mode of Arrival: Ambulatory Limitations: No Limitations Description of Symptoms (Recalled from ER Triage Doc. by RN): PT REPORTS 2 WEEKS OF LEFT SIDED ABDOMINAL SWELLING WITH DIFFUSE ABDOMINAL PAIN, NAUSEA AND INTERMITTENT DIARRHEA. RECENT COVID 09/19/2022 History of Present Illness HPI narrative: Patient is a 72-year-old male who presents with concern for abdominal pain. He says that he recently had COVID a few weeks ago but he says that over the last few months he has had abdominal pain. He also complains of left-sided abdominal swelling. He says that he has had a decent amount of nausea and has recently started to have intermittent diarrhea. He says he was having the symptoms before he got COVID and was getting a start getting it worked up with his primary care physician but this was delayed due to him having COVID. He locates his pain diffusely throughout his abdomen and says it is mild. He says that the swelling on the left side of his abdomen has gotten substantially better. Denies any hematemesis or hematochezia. Related Data Home Medications Medication Instructions Recorded Confirmed lisinopril 20 1 tab PO DAILY High blood pressure 11/18/17 08/31/22 mg-hydrochlorothiazide 25 mg tablet aspirin 81 mg tablet,delayed 162 mg PO .every 3rd day HEART 09/16/18 08/31/22 release spironolactone 25 mg tablet 25 mg PO DAILY Fluid 09/16/18 08/31/22 loratadine 10 mg tablet (Allergy 10 mg PO DAILY Allergy symptoms 09/18/19 08/31/22 Relief (loratadine)) prasugrel 10 mg table
== END 2022-09-26 20:58 | disposition home or self-care (01) ==
PROVIDERS: Emergency Provider Student in an Organized Health Care Education/Training Program; PCP Emergency Medicine
DX: R10.9 Unspecified abdominal pain (principal); R11.0 Nausea; R19.7 Diarrhea, unspecified; Z79.82 Long term (current) use of aspirin; Z79.899 Other long term (current) drug therapy; E11.9 Type 2 diabetes mellitus without complications
CPT/HCPCS: 74177; 80053; 81001; 83690; 85025; 86140; 96365; 96375; 99284; J2405; Q9967

== ENCOUNTER → 2022-10-21 16:14 | Outpatient (CLI) | payer MEDICARE, BC, SELFPAY ==
[2022-10-21 17:14] LABS: Anion Gap 15.4 mEq/L (5-15); Blood Urea Nitrogen 13 mg/dl (9-20); Calcium 9.9 mg/dl (8.4-10.2); Carbon Dioxide 25 mmol/L (22.0-30.0); Chloride 97 mmol/L (98-107); Estimated Glomerular Filt Rate 95 ml/min (>60); GFR (African American) 115 ML/MIN (>60); Glucose 114 mg/dl (74-100); Potassium 4.4 mmoL/L (3.5-5.1); Sodium 133 mmol/L (136-145)
== END ==
PROVIDERS: PCP Emergency Medicine; Visit Provider Emergency Medicine
DX: E87.5 Hyperkalemia (principal)
CPT/HCPCS: 36415; 80048

== ENCOUNTER → 2023-02-09 13:48 | Outpatient (CLI) | payer MEDICARE, BC, SELFPAY ==
[2023-02-09 14:36] LABS: Basophils % 0.7 % (0.1-2.0); Eosinophils # 0.1 K/mm3 (0.0-0.4); Eosinophils % 1.5 % (0.1-12.0); Hematocrit 42.3 % (42.0-52.0); Hemoglobin 13.8 g/dL (14.1-18.0); Lymphocytes # 1.8 K/mm3 (0.7-4.5); Lymphocytes % 34.9 % (10-50); Mean Corpuscular HGB Conc 32.6 g/dL (31.8-35.4); Mean Corpuscular Volume 98.1 fl (80-94); Mean Platelet Volume 8.2 fl (7.4-10.4); Monocytes # 0.4 K/mm3 (0.1-1.0); Monocytes % 7.7 % (1.7-9.3); Neutrophils # 2.8 K/mm3 (1.8-7.8); Platelet Count 248 K/mm3 (142-424); Red Blood Count 4.32 M/mm3 (4.60-6.20); Red Cell Distribution Width 13.1 % (11.5-17.5)
[2023-02-09 15:06] LABS: Chloride 97 mmol/L (98-107)
[2023-02-09 15:07] LABS: Potassium 4.3 mmoL/L (3.5-5.1); Sodium 133 mmol/L (136-145)
[2023-02-09 15:09] LABS: Alanine Aminotransferase 31 U/L (12-78); Alkaline Phosphatase 45 U/L (38-126); Anion Gap 12.3 mEq/L (5-15); Aspartate Amino Transferase 27 U/L (17-59); Bilirubin,Indirect 0.8 mg/dL (0.0-0.9); Bilirubin,Total 0.8 mg/dl (0.2-1.3); Bilirubin,Unconjugated 0.9 mg/dL (0.0-1.1); Blood Urea Nitrogen 14 mg/dl (9-20); Carbon Dioxide 28 mmol/L (22.0-30.0); Cholesterol 135 mg/dl (140-200); Estimated Glomerular Filt Rate 95 ml/min (>60); GFR (African American) 115 ML/MIN (>60); Triglycerides 107 mg/dl (30-150); VLDL Cholesterol 21 mg/dL (0-40)
[2023-02-09 15:10] LABS: Albumin Level 4.3 g/dl (3.5-5.0); Chol/HDL Ratio 3.5 (1-3.5); Glucose 105 mg/dl (74-100); HDL Cholesterol 39 mg/dl (40-60); Total Protein,Serum 6.7 g/dl (6.3-8.2)
[2023-02-09 15:21] LABS: Direct LDL Cholesterol 85.92 mg/dL (100-129)
== END ==
PROVIDERS: Nurse Practitioner Family; PCP Emergency Medicine; Visit Provider Internal Medicine Interventional Cardiology
DX: E78.00 Pure hypercholesterolemia, unspecified (principal)
CPT/HCPCS: 36415; 80048; 80061; 80076; 85025

== ENCOUNTER → 2023-05-13 07:29 | Outpatient (CLI) | payer MEDICARE, BC, SELFPAY ==
[2023-05-13 08:49] LABS: Alanine Aminotransferase 33 U/L (12-78); Albumin Level 4.3 g/dl (3.5-5.0); Alkaline Phosphatase 49 U/L (38-126); Anion Gap 15.2 mEq/L (5-15); Aspartate Amino Transferase 30 U/L (17-59); Bilirubin,Indirect 0.4 mg/dL (0.0-0.9); Bilirubin,Total 0.4 mg/dl (0.2-1.3); Bilirubin,Unconjugated 0.5 mg/dL (0.0-1.1); Blood Urea Nitrogen 15 mg/dl (9-20); Calcium 9.4 mg/dl (8.4-10.2); Carbon Dioxide 28 mmol/L (22.0-30.0); Chloride 99 mmol/L (98-107); Chol/HDL Ratio 1.6 (1-3.5); Cholesterol 100 mg/dl (140-200); Estimated Glomerular Filt Rate 111 ml/min (>60); GFR (African American) 135 ML/MIN (>60); Glucose 130 mg/dl (74-100); HDL Cholesterol 63 mg/dl (40-60); Potassium 4.2 mmoL/L (3.5-5.1); Sodium 138 mmol/L (136-145); Total Protein,Serum 6.8 g/dl (6.3-8.2); Triglycerides 90 mg/dl (30-150); VLDL Cholesterol 18 mg/dL (0-40)
[2023-05-13 09:00] LABS: Direct LDL Cholesterol 35.12 mg/dL (100-129)
== END ==
PROVIDERS: PCP Emergency Medicine; Visit Provider Physician Assistant
DX: E78.00 Pure hypercholesterolemia, unspecified (principal)
CPT/HCPCS: 36415; 80048; 80061; 80076

== ENCOUNTER → 2023-09-08 15:27 | Outpatient (CLI) | payer MEDICARE, BC, SELFPAY ==
[2023-09-08 17:15] LABS: Prostate Specific Ag Screen 2.6 ng/ml (0.0-4.0)
== END ==
PROVIDERS: PCP Emergency Medicine; Visit Provider Emergency Medicine
DX: Z12.5 Encounter for screening for malignant neoplasm of prostate (principal)
CPT/HCPCS: 36415; G0103

== ENCOUNTER → 2023-09-29 14:49 | Outpatient (CLI) | payer MEDICARE, BC, SELFPAY ==
[2023-09-29 16:21] LABS: Blood Urea Nitrogen 15 mg/dl (9-20); Estimated Glomerular Filt Rate 83 ml/min (>60); GFR (African American) 100 ML/MIN (>60)
== END ==
PROVIDERS: PCP Emergency Medicine; Visit Provider Emergency Medicine
DX: E11.9 Type 2 diabetes mellitus without complications (principal); Z79.84 Long term (current) use of oral hypoglycemic drugs
CPT/HCPCS: 36415; 82565; 84520

== ENCOUNTER → 2023-10-05 08:26 | Outpatient (CLI) | payer MEDICARE, BC, SELFPAY ==
--- NOTE | 2023-10-05 08:26 | CT_ITS ---
FINAL REPORT TECHNIQUE: Axial CT images of the abdomen and pelvis were obtained before and after the administration of IV contrast. This study was performed with techniques to keep radiation doses as low as reasonably achievable (ALARA). Individualized dose reduction techniques using automated exposure control or adjustment of mA and/or kV according to the patient's size were employed. CLINICAL HISTORY: questionable mass. Possible left lymphadnopathy on most recent scan. COMPARISON: 09/26/2022 FINDINGS: Abdomen: There is mild scarring or atelectasis present bilaterally. The heart is normal in size. The liver has an unremarkable appearance, without evidence of mass or biliary duct dilatation. Mild nonspecific gallbladder wall thickening is present without any evidence of biliary dilatation. The spleen is unremarkable. No adrenal masses present. The pancreas has an unremarkable appearance. There is a small left renal cyst present. The aorta is normal in caliber and there are moderate vascular calcifications present. There are multiple borderline mesenteric nodes, which are nonspecific in appearance. No mass or abnormal fluid collection is seen. Pelvis: The appendix is normal in appearance. The urinary bladder is unremarkable. There is mild sigmoid colon wall thickening, worrisome for colitis. Multiple borderline in size inguinal nodes are present, stable since the prior CT, favor reactive. Bilateral inguinal hernias are present containing fat. There is degenerative change of the lower lumbar spine, stable. There is no evidence of bowel obstruction. IMPRESSION: There are multiple borderline in size mesenteric nodes present, which are a nonspecific finding. Mild sigmoid colon wall thickening, worrisome for colitis. Mild nonspecific gallbladder wall thickening, without biliary ductal dilatation. Reviewed, Interpreted and Dictated by Wade Brooks III, MD Transcribed by Osiris Jones Authenticated and [facility]
== END ==
PROVIDERS: PCP Emergency Medicine; Visit Provider Emergency Medicine
DX: R10.9 Unspecified abdominal pain (principal)
CPT/HCPCS: 74178; Q9967

== ENCOUNTER → 2023-10-28 10:00 | Outpatient (CLI) | payer MEDICARE, BC, SELFPAY ==
[2023-10-28 11:37] LABS: Alanine Aminotransferase 38 U/L (12-78); Albumin Level 4.4 g/dl (3.5-5.0); Alkaline Phosphatase 44 U/L (38-126); Aspartate Amino Transferase 35 U/L (17-59); Bilirubin,Direct 0.1 mg/dl (0.0-0.4); Bilirubin,Indirect 0.6 mg/dL (0.0-0.9); Bilirubin,Total 0.7 mg/dl (0.2-1.3); Bilirubin,Unconjugated 0.6 mg/dL (0.0-1.1); Cholesterol 94 mg/dl (140-200); Total Protein,Serum 6.7 g/dl (6.3-8.2); Triglycerides 149 mg/dl (30-150); VLDL Cholesterol 30 mg/dL (0-40)
[2023-10-28 11:48] LABS: Direct LDL Cholesterol 40.77 mg/dL (100-129)
[2023-10-28 16:27] LABS: Chol/HDL Ratio 2.2 (1-3.5); HDL Cholesterol 43 mg/dl (40-60)
== END ==
PROVIDERS: PCP Internal Medicine; Visit Provider Internal Medicine Interventional Cardiology
DX: E78.00 Pure hypercholesterolemia, unspecified (principal)
CPT/HCPCS: 36415; 80061; 80076

== ENCOUNTER 2023-12-06 09:39 | Outpatient (CLI) | payer MEDICARE, SELFPAY ==
[2023-12-06 10:45] LABS: Alanine Aminotransferase 39 U/L (12-78); Albumin Level 4.2 g/dl (3.5-5.0); Alkaline Phosphatase 46 U/L (38-126); Anion Gap 11.1 mEq/L (5-15); Aspartate Amino Transferase 32 U/L (17-59); Bilirubin,Direct 0.4 mg/dl (0.0-0.4); Bilirubin,Indirect 0.3 mg/dL (0.0-0.9); Bilirubin,Total 0.7 mg/dl (0.2-1.3); Bilirubin,Unconjugated 0.2 mg/dL (0.0-1.1); Blood Urea Nitrogen 11 mg/dl (9-20); Calcium 8.7 mg/dl (8.4-10.2); Carbon Dioxide 31 mmol/L (22.0-30.0); Chloride 100 mmol/L (98-107); Chol/HDL Ratio 2.5 (1-3.5); Cholesterol 99 mg/dl (140-200); Estimated Glomerular Filt Rate 111 ml/min (>60); GFR (African American) 134 ML/MIN (>60); Glucose 127 mg/dl (74-100); HDL Cholesterol 40 mg/dl (40-60); Potassium 4.1 mmoL/L (3.5-5.1); Sodium 138 mmol/L (136-145); Total Protein,Serum 6.5 g/dl (6.3-8.2); Triglycerides 154 mg/dl (30-150); VLDL Cholesterol 31 mg/dL (0-40)
[2023-12-06 10:55] LABS: Direct LDL Cholesterol 45.41 mg/dL (100-129)
[2023-12-07 08:20] LABS: C-Reactive Protein, Cardiac 1.09 mg/L (0.00-3.00)
[2023-12-07 15:24] LABS: Miscellaneous Test SCANNED IMAGE
== END 2023-12-06 23:59 ==
PROVIDERS: PCP Internal Medicine; Visit Provider Internal Medicine Interventional Cardiology
DX: E78.00 Pure hypercholesterolemia, unspecified (principal); I25.10 Atherosclerotic heart disease of native coronary artery without angina pectoris; I10 Essential (primary) hypertension
CPT/HCPCS: 36415; 80048; 80061; 80076; 86141

== ENCOUNTER 2024-06-14 09:15 | Outpatient (CLI) | payer MEDICARE, SELFPAY ==
[2024-06-14 09:35] LABS: Basophils # 0.1 K/mm3 (0-0.2); Basophils % 1.3 % (0.1-2.0); Eosinophils # 0.2 K/mm3 (0.0-0.4); Eosinophils % 3.2 % (0.1-12.0); Hematocrit 44.4 % (42.0-52.0); Hemoglobin 14.5 g/dL (14.1-18.0); Lymphocytes # 1.9 K/mm3 (0.7-4.5); Lymphocytes % 40.4 % (10-50); Mean Corpuscular HGB Conc 32.7 g/dL (31.8-35.4); Mean Corpuscular Hemoglobin 33.1 pg (27.0-31.2); Mean Corpuscular Volume 101.4 fl (80-94); Mean Platelet Volume 8.6 fl (7.4-10.4); Monocytes # 0.4 K/mm3 (0.1-1.0); Monocytes % 7.9 % (1.7-9.3); Neutrophils # 2.3 K/mm3 (1.8-7.8); Neutrophils % 47.3 % (37.0-80.0); Platelet Count 258 K/mm3 (142-424); Red Blood Count 4.38 M/mm3 (4.60-6.20); White Blood Count 4.8 K/mm3 (4.8-10.8)
[2024-06-14 10:10] LABS: Alanine Aminotransferase 45 U/L (12-78); Albumin Level 4.1 g/dl (3.5-5.0); Alkaline Phosphatase 42 U/L (38-126); Anion Gap 10.9 mEq/L (5-15); Aspartate Amino Transferase 29 U/L (17-59); Bilirubin,Indirect 0.6 mg/dL (0.0-0.9); Bilirubin,Total 0.6 mg/dl (0.2-1.3); Bilirubin,Unconjugated 0.7 mg/dL (0.0-1.1); Blood Urea Nitrogen 14 mg/dl (9-20); Calcium 9.5 mg/dl (8.4-10.2); Carbon Dioxide 28 mmol/L (22.0-30.0); Chloride 103 mmol/L (98-107); Chol/HDL Ratio 1.8 (1-3.5); Cholesterol 66 mg/dl (140-200); Estimated Glomerular Filt Rate 111 ml/min (>60); GFR (African American) 134 ML/MIN (>60); Glucose 131 mg/dl (74-100); HDL Cholesterol 37 mg/dl (40-60); Potassium 3.9 mmoL/L (3.5-5.1); Sodium 138 mmol/L (136-145); Total Protein,Serum 6.5 g/dl (6.3-8.2); Triglycerides 102 mg/dl (30-150); VLDL Cholesterol 20 mg/dL (0-40)
[2024-06-14 10:25] LABS: Direct LDL Cholesterol < 30.00 mg/dL (100-129)
[2024-06-14 10:26] LABS: Free T4 (Free Thyroxine) 0.81 ng/dl (0.78-2.19)
[2024-06-14 10:41] LABS: Thyroid Stimulating Hormone 1.49 uIU/mL (0.465-4.68)
== END 2024-06-14 23:59 | disposition home or self-care (01) ==
LOC: LAB 09:18
PROVIDERS: Physician Assistant; PCP Internal Medicine; Visit Provider Nurse Practitioner Family
DX: I25.10 Atherosclerotic heart disease of native coronary artery without angina pectoris (principal); R94.31 Abnormal electrocardiogram [ECG] [EKG]; E11.9 Type 2 diabetes mellitus without complications; Z79.84 Long term (current) use of oral hypoglycemic drugs
CPT/HCPCS: 36415; 80048; 80061; 80076; 84439; 84443; 85025

== ENCOUNTER 2024-06-27 10:02 | Outpatient (CLI) | payer MEDICARE, SELFPAY ==
--- NOTE | 2024-06-27 10:02 | NM_ITS ---
APPROVED REPORT Exam: Nuclear Stress Test Indication: Fatigue, CAD, Hx of [place], HTN, DM, High cholesterol Patient Location: Outpatient Stress Tech: Yanique LOVE Tech:Lea Vasques, ARRT, RT (R)(N) Ht: 5 ft 11 in Wt: 160 lbs HR: 54 bpm BP: 144/76 mmHg BSA: 1.92 m2 TID: 1.21 BMI: 22.3 History: Fatigue, CAD, Hx of [place], HTN, DM, High cholesterol Procedure: Patient received 0.4 mg of intravenous Lexiscan, resting heart rate 54 bpm, resting blood pressure 144/76 mmHg, with Lexiscan maximum heart rate achieved was 80 bpm which is % of the maximum predicted heart rate and blood pressure was 155/72 mmHg. With Lexiscan, patient denied any complaint of chest pain. Cardiac Stress and Resting SPECT Images: Cardiac Stress and Resting SPECT images were obtained using technetium 99m Myoview 32.6 mCi stress and 10.56 mCi at rest. Resting and stres imaging in supine and prone positions demonstrate a large-sized, moderate, fixed perfusion defect in the inferior LV wall. There is also a medium-sized, moderate, reversible perfusion defect in the anterior LV wall. There is increase in transient ischemic dilatation ratio (TID 1.21), suggestive of possible multivessel disease or balanced ischemia. Gated imaging demonstrates moderate reduction in global LV systolic function. There is severe hypokinesis of the inferior LV wall. LVEF is calculated at 37%. Conclusion: Large-sized, moderate, fixed perfusion defect in the inferior LV wall. There is also a medium-sized, moderate, reversible perfusion defect in the anterior LV wall. There is increase in transient ischemic dilatation ratio (TID 1.21), suggestive of possible multivessel disease or balanced ischemia. Gated imaging demonstrates moderate reduction in global LV systolic function. There is severe hypokinesis of the inferior LV wall. LVEF is calculated at 37%. Electronically signed by : Mariana Mart MD 06/28/2024 11:37:53
--- NOTE | 2024-06-27 10:18 | CA_ITS ---
FINAL REPORT TECHNIQUE: Color Doppler, duplex Doppler and spear scale sonography of the bilateral neck vasculature was performed. Velocities were measured in the carotid arteries. Stenosis evaluation based on velocity criteria. CLINICAL HISTORY: JOVANI,DIZZINESS COMPARISON: None FINDINGS: The peak systolic velocity of the right common carotid artery is 84.5 cm/sec and internal carotid artery 99.4 cm/sec. The diastolic velocity in the internal carotid artery is 39.6 cm/sec. The ICA/CCA ratio is 1.5. Visually, a moderate amount of plaque is seen.. These findings are consistent with less than 50% stenosis. The external carotid artery is patent. The right vertebral artery is patent with antegrade flow. The peak systolic velocity of the left common carotid artery is 73.8 cm/sec and internal carotid artery 95.2 cm/sec. The diastolic velocity in the internal carotid artery is 33.1 cm/sec. The ICA/CCA ratio is 1.35. Visually, a moderate amount of plaque is present.. These findings are consistent with less than 50% stenosis. The external carotid artery is patent. The left vertebral artery is patent with antegrade flow. IMPRESSION: No evidence of significant carotid stenosis. Bilateral patent vertebral arteries. If indicated, CTA or MRA could further evaluate. Reviewed, Interpreted and Dictated by Wade Brooks III, MD Transcribed by Osiris Jones Authenticated and [facility]
--- NOTE | 2024-06-27 10:24 | CA_ITS ---
APPROVED REPORT Exam: Pharmacologic Technologist: Yanique Araujo, Ht: 5 ft 11 in Wt: 159 lbs BSA: 1.91 m2 HR: 54 bpm BP: 144/76 mmHg Rhythm: SB, RBBB Medical History Medications: Aspirin,,,,, Metformin,,,,, Metoprolol Tartrate,,,,, Atorvastatin,,,,, LoraTADINE,,,,, Prasugrel,,,,, Evolocumab,,,,, Lisinporil HCTZ,,,,, Cardiac Risk Factors: HTN, Hyperlipidemia, Diabetes (non-insulin) Stress Test Details Test: LEXISCAN HR Resting HR: 54 bpm Max Heart Rate (APMHR): 148 bpm Max HR Achieved: 80 bpm Target HR (85% APMHR): 126 bpm % of APMHR: 54 Recovery HR: 74 bpm BP Resting BP: 144.0/76.0 mmHg Max BP: 155.0/72.0 mmHg Recovery BP: 148.0/81.0 mmHg ECG Resting ECG: SB, RBBB Stress ECG: No significant ST changes Arrhythmia: PVCs Clinical Exercise duration: 04:02 min Highest Stage Achieved: Exercise capacity: 1.0 METs Stress ECG Conclusion During lexiscan pt experinced SOA. PVCs present. ST changes: None. Conclusion: EKG portion unremarkable due to lexiscan infusion. Myoview images reported separately. Test Summary REST . . . . . . . Sitting REST 06:58 . . 54 . 144/ 76 . . Stage 1 01:00 . . 74 . . . . Stage 2 01:00 . . 76 . 146/ 72 . . Stage 3 01:00 . . 72 . 137/ 70 . . Stage 4 01:00 . . 74 . 148/ 81 . . Stage 4 01:02 . . 74 . 148/ 81 . Stop exercise at 04:02 RECOVERY 01:00 . . 68 . 155/ 72 . . RECOVERY 02:00 . . 72 . 155/ 72 . . RECOVERY 03:00 . . 72 . 146/ 72 . . RECOVERY 04:00 . . 70 . 146/ 71 . . RECOVERY 04:08 . . 67 . 146/ 71 . . Electronically signed by : Mariana Mart MD 06/28/2024 11:33:01
[2024-06-27] MEDS: ISOTOPE MYOVIEW (PER STUDY) 1 DOSE IV (12:29)
[2024-06-27] MEDS: SODIUM CHLORIDE 0.9% 10ML SYR (RAD ONLY) 10 ML IV ×2 (12:29)
[2024-06-27] MEDS: REGADENOSON 0.4MG/5ML SYRINGE 0.4 MG IV (12:29)
== END 2024-06-27 23:59 | disposition home or self-care (01) ==
PROVIDERS: PCP Internal Medicine; Visit Provider Physician Assistant
DX: I25.118 Atherosclerotic heart disease of native coronary artery with other forms of angina pectoris (principal); R42 Dizziness and giddiness; R94.31 Abnormal electrocardiogram [ECG] [EKG]; E11.9 Type 2 diabetes mellitus without complications; E78.5 Hyperlipidemia, unspecified; Z79.84 Long term (current) use of oral hypoglycemic drugs
CPT/HCPCS: 78452; 93017; 93018; 93880; A9502; J2785

== ENCOUNTER 2024-07-20 07:56 | Day surgery (SDC) | payer MEDICARE, SELFPAY ==
[2024-07-20] VITALS (14 sets, daily range): BP systolic 127–149; BP diastolic 65–80; PULSE 48–61; RESP 18; TEMP 36.9; O2SAT 95–100; BMI 22.1
--- NOTE | 2024-07-20 07:40 | IR_ITS ---
APPROVED REPORT Patient Location: Outpatient Desktop Administrator: SHARON Masters RT (R) PROCEDURES Left heart catheterization Left ventriculogram Selective coronary angiogram Drug-eluting stent deployment to the proximal and mid LAD in a contiguous manner Drug-eluting stent deployment to the proximal and mid dominant right coronary INDICATION High risk abnormal Myoview, Angina pectoris, Coronary artery disease Informed consent was obtained prior to the procedure. COMPLICATIONS NONE Estimated Blood Loss: LESS THAN 10 ML TECHNIQUE One percent lidocaine used to anesthetize the right anterior aspect of the wrist. The right radial artery was accessed via the Seldinger technique. A 6 Icelandic sheath was placed in the right radial artery. 2.5 mg of Verapamil, 800 mcg of nitroglycerin, 1mg Lidocaine and 5000 U Heparin were given through the arterial sheath. The papa catheter was also used to perform left heart catheterization, left ventriculogram and selective coronary angiogram. At the end the diagnostic angiogram therapeutic Was administered giving a therapeutic ACT and the guide catheter was placed in left main artery followed by Choice PT extra-support wire placed on the LAD. Primary stenting could not be performed therefore 2.5 x 15 mm noncompliant balloon was deployed at 20 alex in the proximal segment. Despite this there was still additional distal blockages which would not allow delivery of a stent. An additional 2.5 x 15 mm noncompliant balloon was then deployed at 20 alex to further predilate the stenosis. Following this a 3 mm x 30 mm Oscar frontier stent was placed however a guide liner was required due to the complex delivery and calcification and severe stenosis. The stent was then deployed at 20 alex reducing the stenosis. There was haziness distal to the stent therefore a 2.5 x 12 mm Dysart frontier stent was placed distal to the for stent yet still overlapping and deployed at 18 alex. The balloon was brought back and deployed at 28 alex to post dilate mesh the 2 stents. JAIME-3 flow was present before and after the procedure. There are excellent angiograph results. Following this the guide liner and apparatus was removed from the left main artery and placed into the right coronary artery followed by the same Choice PT export wire. The guide liner was advanced and a 3.5 x 30 mm Oscar frontier stent was deployed at 24 alex reducing the stenosis. An additional 3.75 x 12 mm noncompliant balloon was deployed on multiple occasions throughout the stent up to 24 alex to further post dilate. Excellent angiograph results were obtained at the end the procedure the apparatus was removed the sheath was removed and hemostasis was achieved using TR banding patient was transferred to the postop putting in stable condition ANGIOGRAPHIC RESULTS The left main artery Normal The left anterior descending artery Has a proximal highly eccentric calcified greater than 80% stenosis immediately adjacent to a large first septal manager discovery. There is additional calcified 40% stenoses. The remaining LAD is widely patent with mild 10% luminal regularities The circumflex artery Is nondominant yet still large and has a stent in the proximal and mid segment which is widely patent free of in-stent restenosis with excellent proximal distal transitioning The right coronary artery There is a dominant vessel and has stents in the proximal to mid segment in which the stents appear to be undersized for the vessel and hazy 70 to 80% stenosis is identified proximally with additional 60 to 70% stenosis in the midsegment. Distally there are 30% stenoses. Following revascularization the right coronary was significantly larger than previously with wide patency of the stents The MORTENSEN ventriculogram reveals Normal 65% The left ventricular end-diastolic pressure 15 mmHg IMPRESSION Coronary disease as described above Severe calcification in the proximal LAD with successful stenting of the proximal and mid LAD severe disease reduced to 0% with 2 contiguous drug-eluting stents Widely patent stent in the circumflex artery Undersized stent in the right coronary artery which was increased in size and postdilated to greater than 4 mm in diameter reducing the stenosis to less than 10% as described above Normal ejection fraction Borderline LVEDP PLAN 1. Dual antiplatelet therapy 2. Cardiac rehabilitation 3. Avoidance of tobacco products 4. Risk factor modification 5. LDL less than 55 to be achieved with high intensity statin Electronically signed by : Milind Acuña MD 07/20/2024 10:56:30
[2024-07-20 08:44] LABS: Basophils % 0.7 % (0.1-2.0); Eosinophils # 0.1 K/mm3 (0.0-0.4); Eosinophils % 2.4 % (0.1-12.0); Hematocrit 43.5 % (42.0-52.0); Hemoglobin 14.1 g/dL (14.1-18.0); Lymphocytes # 1.7 K/mm3 (0.7-4.5); Lymphocytes % 30.9 % (10-50); Mean Corpuscular HGB Conc 32.4 g/dL (31.8-35.4); Mean Corpuscular Hemoglobin 32.9 pg (27.0-31.2); Mean Corpuscular Volume 101.5 fl (80-94); Mean Platelet Volume 8.1 fl (7.4-10.4); Monocytes # 0.4 K/mm3 (0.1-1.0); Monocytes % 6.9 % (1.7-9.3); Neutrophils # 3.3 K/mm3 (1.8-7.8); Neutrophils % 59.1 % (37.0-80.0); Platelet Count 261 K/mm3 (142-424); Red Blood Count 4.28 M/mm3 (4.60-6.20); Red Cell Distribution Width 13.8 % (11.5-17.5); White Blood Count 5.6 K/mm3 (4.8-10.8)
[2024-07-20 08:57] LABS: Chloride 101 mmol/L (98-107); Potassium 3.4 mmoL/L (3.5-5.1)
[2024-07-20 08:58] LABS: Sodium 135 mmol/L (136-145)
[2024-07-20 09:00] LABS: Anion Gap 6.4 mEq/L (5-15); Blood Urea Nitrogen 14 mg/dl (9-20); Calcium 9.1 mg/dl (8.4-10.2); Carbon Dioxide 31 mmol/L (22.0-30.0); Creatinine Clearance Estimated 68 mL/min (50-200); Estimated Glomerular Filt Rate 95 ml/min (>60); GFR (African American) 115 ML/MIN (>60); Glucose 118 mg/dl (74-100)
[2024-07-20] MEDS: HEPARIN 1,000 UNITS/ML 10ML VIAL (CATH LAB) 10000 UNIT IV ×2 (09:41→10:03)
[2024-07-20] MEDS: LIDOCAINE 1% 10ML MDV 20 ML IJ (09:41)
[2024-07-20] MEDS: VERAPAMIL 2.5MG/ML 2ML VIAL 2.5 MG IV (09:41)
[2024-07-20] MEDS: diphenhydrAMINE 50MG/ML VIAL 50 MG IV (09:42)
[2024-07-20] MEDS: HEPARIN 1,000 UNITS/500ML NS (CATH LAB) 3000 UNIT IV (09:42)
[2024-07-20] MEDS: 0.9 % SODIUM CHLORIDE 500 ML 25 ML IV (09:45)
[2024-07-20] MEDS: MIDAZOLAM HCL 1MG/1ML 5ML VIAL 1 MG IV (10:37)
[2024-07-20] MEDS: FENTANYL 100MCG/2ML VIAL 50 MCG IV (10:37)
[2024-07-20 12:26] LABS: CATHL Activated Clotting Time > 400 SEC (74-125)
[2024-07-20] MEDS: IOPAMIDOL-370 (76%);100ML BOTTLE 130 ML IV (12:35)
== END 2024-07-20 14:20 | disposition home or self-care (01) ==
PROVIDERS: PCP Internal Medicine; Visit Provider Internal Medicine
DX: R94.39 Abnormal result of other cardiovascular function study (principal); I65.23 Occlusion and stenosis of bilateral carotid arteries; E78.2 Mixed hyperlipidemia; R94.31 Abnormal electrocardiogram [ECG] [EKG]; E11.59 Type 2 diabetes mellitus with other circulatory complications; I25.110 Atherosclerotic heart disease of native coronary artery with unstable angina pectoris; Z79.899 Other long term (current) drug therapy; Z79.84 Long term (current) use of oral hypoglycemic drugs; I77.1 Stricture of artery
CPT/HCPCS: 80048; 85025; 85347; 92928; 93458; 99152; 99153; C1725; C1769; C1874; C9600; J1200; J1644; J2250; J3010; Q9967

== ENCOUNTER 2024-07-24 08:36 | Outpatient (CLI) | payer MEDICARE, SELFPAY ==
[2024-07-24 09:06] LABS: Basophils # 0.1 K/mm3 (0-0.2); Eosinophils # 0.1 K/mm3 (0.0-0.4); Eosinophils % 2.6 % (0.1-12.0); Hematocrit 42.6 % (42.0-52.0); Hemoglobin 13.6 g/dL (14.1-18.0); Lymphocytes # 1.8 K/mm3 (0.7-4.5); Lymphocytes % 37.1 % (10-50); Mean Corpuscular Hemoglobin 33.3 pg (27.0-31.2); Mean Corpuscular Volume 103.9 fl (80-94); Mean Platelet Volume 8.3 fl (7.4-10.4); Monocytes # 0.4 K/mm3 (0.1-1.0); Monocytes % 8.3 % (1.7-9.3); Neutrophils # 2.4 K/mm3 (1.8-7.8); Platelet Count 255 K/mm3 (142-424); Red Cell Distribution Width 14.1 % (11.5-17.5); White Blood Count 4.8 K/mm3 (4.8-10.8)
[2024-07-24 09:33] LABS: Blood Urea Nitrogen 10 mg/dl (9-20); Calcium 9.1 mg/dl (8.4-10.2); Carbon Dioxide 30 mmol/L (22.0-30.0); Chloride 104 mmol/L (98-107); Estimated Glomerular Filt Rate 111 ml/min (>60); GFR (African American) 134 ML/MIN (>60); Glucose 135 mg/dl (74-100); Sodium 138 mmol/L (136-145)
== END 2024-07-24 23:59 | disposition home or self-care (01) ==
LOC: LAB 08:39
PROVIDERS: PCP Internal Medicine; Visit Provider Internal Medicine
DX: I25.10 Atherosclerotic heart disease of native coronary artery without angina pectoris (principal); I10 Essential (primary) hypertension
CPT/HCPCS: 36415; 80048; 85025

== ENCOUNTER 2024-08-16 16:15 | Outpatient (CLI) | payer MEDICARE, SELFPAY ==
[2024-08-16 19:24] LABS: Creatinine,Urine Random 78 mg/dL (Not Estab.); Microalbumin < 6.000 mg/L (0-16.7)
[2024-08-16 19:30] LABS: Basophils % 0.7 % (0.1-2.0); Eosinophils # 0.1 K/mm3 (0.0-0.4); Hematocrit 41.1 % (42.0-52.0); Hemoglobin 13.8 g/dL (14.1-18.0); Lymphocytes # 1.7 K/mm3 (0.7-4.5); Lymphocytes % 31.7 % (10-50); Mean Corpuscular HGB Conc 33.7 g/dL (31.8-35.4); Mean Corpuscular Hemoglobin 32.1 pg (27.0-31.2); Mean Corpuscular Volume 95.3 fl (80-94); Mean Platelet Volume 8.9 fl (7.4-10.4); Monocytes # 0.4 K/mm3 (0.1-1.0); Monocytes % 8.4 % (1.7-9.3); Neutrophils % 57.2 % (37.0-80.0); Platelet Count 258 K/mm3 (142-424); Red Blood Count 4.31 M/mm3 (4.60-6.20); Red Cell Distribution Width 13.8 % (11.5-17.5); White Blood Count 5.2 K/mm3 (4.8-10.8)
[2024-08-16 20:15] LABS: Hemoglobin A1C 6.6 % (4.0-6.0)
[2024-08-16 20:47] LABS: Alanine Aminotransferase 24 U/L (12-78); Albumin Level 4.4 g/dl (3.5-5.0); Albumin/Globulin Ratio 2.1 (1.1-1.8); Alkaline Phosphatase 49 U/L (38-126); Anion Gap 9.5 mEq/L (5-15); Aspartate Amino Transferase 26 U/L (17-59); Bilirubin,Total 0.7 mg/dl (0.2-1.3); Blood Urea Nitrogen 12 mg/dl (9-20); Calcium 9.9 mg/dl (8.4-10.2); Carbon Dioxide 32 mmol/L (22.0-30.0); Chloride 99 mmol/L (98-107); Estimated Glomerular Filt Rate 111 ml/min (>60); GFR (African American) 134 ML/MIN (>60); Globulin 2.1 g/dL (1.3-3.2); Glucose 101 mg/dl (74-100); Potassium 4.5 mmoL/L (3.5-5.1); Sodium 136 mmol/L (136-145); Total Protein,Serum 6.5 g/dl (6.3-8.2)
== END 2024-08-16 23:59 | disposition home or self-care (01) ==
LOC: LAB.DROPOF 08-17 14:06
PROVIDERS: PCP Internal Medicine; Visit Provider Internal Medicine
DX: R73.03 Prediabetes (principal); E55.9 Vitamin D deficiency, unspecified; R10.9 Unspecified abdominal pain
CPT/HCPCS: 80053; 82043; 82306; 82570; 83036; 85025

== ENCOUNTER 2024-09-23 16:43 | Emergency (ER) | payer MEDICARE, SELFPAY ==
--- NOTE | 2024-09-23 16:48 | XR_ITS ---
PROCEDURE INFORMATION: Exam: XR Lumbosacral Spine Exam date and time: 09/23/2024 4:51 PM Age: 74 years old Clinical indication: Injury or trauma; Fall; Blunt trauma (contusions or hematomas); Additional info: Fell off ladder 2 weeks ago TECHNIQUE: Imaging protocol: Radiologic exam of the lumbosacral spine. Views: 2 or 3 views. COMPARISON: No relevant prior studies available. FINDINGS: Bones/joints: The thoracolumbar spine demonstrates moderate degenerative changes at multiple levels. This is predominantly manifest by mild endplate discogenic degenerative changes and marginal osteophytes. Normal alignment. There are mild compressive changes involving the L1 vertebral body with concavity to the superior endplate. The overall appearance suggest acute process. There are mild degenerative changes of the sacroiliac joints.There are mild degenerative changes of the hip joints. There are advanced intervertebral disc space narrowing at the L5-S1 level with endplate discogenic degenerative changes and marginal osteophytes. Soft tissues: The aorta and iliac arteries demonstrate moderate atherosclerotic calcification. IMPRESSION: Mild compressive changes involving the L1 vertebral body with an overall appearance suggesting acute/subacute state. Correlate clinically.
[2024-09-23 17:10] VITALS: BP 118/68; PULSE 65; RESP 18; TEMP 36.6; O2SAT 100; BMI 22.5
--- NOTE | 2024-09-23 18:53 | ED_ITS ---
Discharge Plan Disposition Patient Disposition: Home, Self-Care Condition: Good Prescriptions Prescriptions: No Action metformin 500 mg tablet 500 mg PO BID Patient Comments: TAKE 1 TABLET BY MOUTH TWICE DAILY FOR DIABETES atorvastatin 80 mg tablet 80 mg PO DAILY Patient Comments: TAKE 1 TABLET BY MOUTH ONCE DAILY FOR CHOLESTEROL meloxicam 7.5 mg tablet 7.5 mg PO DAILY Patient Comments: TAKE 1 TABLET BY MOUTH ONCE DAILY erythromycin 5 mg/gram (0.5 %) ointment 1 applic ophthalmic (eye) DAILY metoprolol tartrate 50 mg tablet 50 mg PO BID Patient Comments: TAKE 1 TABLET BY MOUTH TWICE DAILY. APPOINTMENT REQUIRED FOR FURTHER REFILLS. lisinopril-hydrochlorothiazide 20-25 mg tablet 1 tab PO DAILY Patient Comments: TAKE 1 TABLET BY MOUTH ONCE DAILY FOR HIGH BLOOD PRESSURE prasugrel 10 mg tablet 10 mg PO DAILY Patient Comments: TAKE 1 TABLET BY MOUTH ONCE DAILY Referrals Follow up/Referrals: Sheng Seals DO [Primary Care Provider] - See instructions Activity Restrictions/Add. Instructions Additional Instructions/Restrictions: follow up with Dr. Seals and take results of back x-ray with you. Avoid any jarring movements. Take medication as prescribed. Clinical Impressions Clinical Impression: Low back pain Qualifiers: Chronicity: acute Back pain laterality: midline Sciatica presence: without sciatica Qualified Code(s): M54.50 - Low back pain, unspecified Instructions Patient Instructions: DI for Chronic Pain -- Adult, DI for Low Back Pain Print Language Print Language: Montenegrin Discharge ED Provider: Silvia Dalal [facility] General Stated complaint: Lower back pain Mode of Arrival: Ambulatory Source of Information: Patient Limitations: No Limitations Time Seen by Provider: 09/23/24 18:51 Description of Symptoms (Recalled from Triage Doc. by RN): PATIENT C/O LOWER BACK PAIN SINCE FALLING OFF OF A LADDER APPROX 2 WEEKS AGO HEENT Symptoms (Recalled from RN notes): No Resp Symptoms (Recalled from RN notes): No Skin Symptoms (Recalled from RN notes): No MS Symptoms (Recalled from RN notes): Yes Functional Status (Recalled from RN notes): WNL History of Present Illness Provider Complaint: Pt reports that he fell out off a ladder 2 weeks ago and has had a backache since that time. Related Data Home Medications ?Medication ?Instructions ?Recorded ?Confirmed atorvastatin 80 mg tablet 80 mg PO DAILY 09/23/24 09/23/24 erythromycin 5 mg/gram (0.5 %) eye 1 applic ophthalmic (eye) DAILY 09/23/24 09/23/24 ointment lisinopril 20 1 tab PO DAILY 09/23/24 09/23/24 mg-hydrochlorothiazide 25 mg tablet meloxicam 7.5 mg tablet 7.5 mg PO DAILY 09/23/24 09/23/24 metformin 500 mg tablet 500 mg PO BID 09/23/24 09/23/24 metoprolol tartrate 50 mg tablet 50 mg PO BID 09/23/24 09/23/24 prasugrel 10 mg tablet 10 mg PO DAILY 09/23/24 09/23/24 Allergies Allergy/AdvReac Type Severity Reaction Status Date / Time No Known Allergies Allergy Verified 09/06/24 13:23 Worker's Comp Is this a Worker's Comp case?: No [facility] Disclaimer: The information contained in this section may have been updated after the patient was seen, as this information can be updated by other users. 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 current occupational exposures/hazards: Yes caffeine: Yes ROS Obtained: Yes All systems reviewed & no additional complaints except as documented Constitutional Constitutional: Reports system reviewed and no additional complaints, except as documented Eyes Eyes: Reports system reviewed and no additional complaints, except as documented ENT Ears, Nose, Mouth, and Throat: Reports system reviewed and no additional complaints, except as documented Cardiovascular Cardiovascular: Reports system reviewed and no additional complaints, except as documented Respiratory Respiratory: Reports system reviewed and no additional complaints, except as documented Gastrointestinal Gastrointestingal: Reports system reviewed and no additional complaints, except as documented Genitourinary Male Genitourinary: Reports system reviewed and no additional complaints, except as documented Musculoskeletal Musculoskeletal: Reports system reviewed and no additional complaints, except as documented and Reports back pain Integumentary/Breasts Skin/Breast: Reports system reviewed and no additional complaints, except as documented Neurologic Neurologic: Reports system reviewed and no additional complaints, except as documented Endocrine Endocrine: Reports system reviewed and no additional complaints, except as documented Hematologic/Lymphatic Henatologic/Lymphatic: Reports system reviewed and no additional complaints, except as documented Allergic/Immunologic Allergic/Immunologic: Reports system reviewed and no additional complaints, except as documented Physical Exam General General appearance: alert and in no apparent distress Head Head exam: atraumatic and normocephalic Eye Eye exam: Present normal appearance ENT ENT exam: Present normal exam and normal oropharynx Neck Neck exam: Present normal inspection Chest Chest inspection: Present normal inspection and symmetric chest wall rise Respiratory Respiratory exam: Present normal lung sounds bilaterally Cardiovascular Cardiovascular exam: Present regular rate and normal rhythm Abdominal Exam Abdominal exam: Present soft Extremities Exam Extremities exam: Present normal inspection Back Exam Back exam: Present tenderness and vertebral tenderness (lumbar area) Back 1 view image: 2 1. area of pain Neurological Exam Neurological exam: Present alert and oriented X3 Psychiatric Psychiatric exam: Present normal affect and normal mood Skin Skin exam: Present warm, dry and intact Lymphatic Lymphatic Findings: no adenopathy Other Other exam information: Pt does not wish to take any other medication for his back pain. He relates that he has Meloxican he takes at home. He was worried that he may have a back fracture and wanted to makes sure that was not the case. Medical Decision Making Medical Records Screening: Per USPSTF and CDC recommendations, given the prevalence of disease in our region, it is our hospital?s policy to screen for HIV and viral Hepatitis for all patients aged 18 and over and those with ongoing risk factors. Santiago Inquiry Pt receiving controlled substance: No Santiago was queried for this patient: No Vital Signs: 09/23/24 17:10 Temperature 97.8 F Temperature Source Oral Pulse Rate [Left Brachial] 65 Respiratory Rate 18 Blood Pressure [Left Arm] 118/68 Blood Pressure Mean [Left Arm] 84 Blood Pressure Source [Left Arm] Automatic Cuff Blood Pressure Position [Left Arm] Sitting 02 Sat by Pulse Oximetry 100 Oxygen Delivery Method Room Air Orders (Tests/Meds): ORDERS Category Date Time Status Lumbar spine XR 2-3 views [XR lumbar spine 2-3V] Stat Exams 09/23/24 16:48 Completed Radiology Data #1: Image(s): T-Spine and L-Spine Image Reviewed: Yes I reviewed the patient's radiology results and Yes I have reviewed radiologist's interpretation IMPRESSION: Mild compressive changes involving the L1 vertebral body with an overall appearance suggesting acute/subacute state. Correlate clinically.
[2024-09-23 19:06] VITALS: BP 118/68; PULSE 65; RESP 18; TEMP 36.6; O2SAT 100
== END 2024-09-23 19:12 | disposition home or self-care (01) ==
PROVIDERS: Emergency Provider Nurse Practitioner Family; PCP Internal Medicine
DX: M54.50 Low back pain, unspecified (principal)
CPT/HCPCS: 72100; 99213; G0381

== ENCOUNTER 2025-01-24 14:20 | Outpatient (CLI) | payer MEDICARE, SELFPAY ==
[2025-01-24 19:09] LABS: Basophils % 0.7 % (0.1-2.0); Eosinophils # 0.1 K/mm3 (0.0-0.4); Hematocrit 41.2 % (42.0-52.0); Hemoglobin 13.8 g/dL (14.1-18.0); Lymphocytes # 1.4 K/mm3 (0.7-4.5); Lymphocytes % 31.6 % (10-50); Mean Corpuscular HGB Conc 33.5 g/dL (31.8-35.4); Mean Corpuscular Hemoglobin 31.2 pg (27.0-31.2); Mean Platelet Volume 10.2 fl (7.4-10.4); Monocytes # 0.5 K/mm3 (0.1-1.0); Monocytes % 9.9 % (1.7-9.3); Neutrophils # 2.5 K/mm3 (1.8-7.8); Neutrophils % 55.8 % (37.0-80.0); Platelet Count 232 K/mm3 (142-424); Red Blood Count 4.43 M/mm3 (4.60-6.20); Red Cell Distribution Width 13.4 % (11.5-17.5); White Blood Count 4.6 K/mm3 (4.8-10.8)
[2025-01-24 19:38] LABS: Microalbumin < 6.000 mg/L (0-16.7)
[2025-01-24 19:40] LABS: Creatinine,Urine Random 90 mg/dL (Not Estab.)
[2025-01-24 21:05] LABS: Vitamin B12 315 pg/mL (239-931)
[2025-01-24 21:45] LABS: Hemoglobin A1C 6.5 % (4.0-6.0)
[2025-01-24 22:08] LABS: Ferritin 36.3 ng/ml (17.9-464)
[2025-01-26 18:51] LABS: Peripheral Smear Review Scanned Result
== END 2025-01-24 23:59 | disposition home or self-care (01) ==
LOC: LAB.DROPOF 01-25 11:11
PROVIDERS: PCP Internal Medicine; Visit Provider Internal Medicine
DX: E11.9 Type 2 diabetes mellitus without complications (principal); E78.2 Mixed hyperlipidemia; D64.9 Anemia, unspecified; E78.5 Hyperlipidemia, unspecified
CPT/HCPCS: 82043; 82570; 82607; 82728; 82746; 83036; 85025

== ENCOUNTER 2025-02-18 09:44 | Emergency (ER) | payer MEDICARE, SELFPAY ==
[2025-02-18] VITALS (8 sets, daily range): BP systolic 122–154; BP diastolic 56–74; PULSE 56–72; RESP 11–17; TEMP 36.7–36.9; O2SAT 97–99; BMI 22.3
--- NOTE | 2025-02-18 09:49 | ECG_ITS ---
APPROVED REPORT Exam: Resting ECG HR:59 bpm ECG Measurements Heart Rate 59 AXES KS 146 P 53 QRSd 178 QRS 97 QT 455 T 19 QTc 453 Conclusion SINUS BRADYCARDIA RIGHT BUNDLE BRANCH BLOCK [120+ ms QRS DURATION, UPRIGHT V1, 40+ ms S IN I/aVL/V4/V5/V6] No STEMI Electronically signed by : EVA SELF, 02/19/2025 03:58:28
--- NOTE | 2025-02-18 10:03 | CT_ITS ---
PROCEDURE INFORMATION: Exam: CT Orbits With Contrast Exam date and time: 02/18/2025 10:34 AM Age: 74 years old Clinical indication: Other: Periorbital edema CHAVEZ; Additional info: Shingles R v1, periorbital edema CHAVEZ TECHNIQUE: Imaging protocol: Computed tomography of the orbits with contrast. Radiation optimization: All CT scans at this facility use at least one of these dose optimization techniques: automated exposure control; mA and/or kV adjustment per patient size (includes targeted exams where dose is matched to clinical indication); or iterative reconstruction. Contrast material: ISOVUE; Contrast volume: 100 ml; Contrast route: IV; COMPARISON: CT HEAD/BRAIN WO CON 02/18/2025 10:31 AM FINDINGS: Paranasal sinuses: Mucosal thickening is noted within frontal recesses, anterior ethmoid air cells and maxillary antra. The patient is post bilateral maxillary antrostomy and partial internal ethmoidectomy. There is a rightward convexity deviation of the nasal septum. Orbital cavities: The patient is post bilateral cataract surgery. There is right preseptal, periorbital and lateral facial soft tissue swelling. Bones/joints: No acute fracture. Soft tissues: There is no drainable fluid collection or soft tissue mass. IMPRESSION: Right periorbital and lateral facial cellulitis. No drainable fluid collection or intraorbital extension. Paranasal sinus disease and postsurgical change.
--- NOTE | 2025-02-18 10:03 | CT_ITS ---
PROCEDURE INFORMATION: Exam: CT Head Without Contrast Exam date and time: 02/18/2025 10:31 AM Age: 74 years old Clinical indication: Other: Periorbital edema CHAVEZ; Additional info: Shingles R v1, periorbital edema CHAVEZ TECHNIQUE: Imaging protocol: Computed tomography of the head without contrast. Radiation optimization: All CT scans at this facility use at least one of these dose optimization techniques: automated exposure control; mA and/or kV adjustment per patient size (includes targeted exams where dose is matched to clinical indication); or iterative reconstruction. COMPARISON: US CA CAROTID DUPLEX BI 06/27/2024 10:27 AM FINDINGS: Brain: There is no mass effect, midline shift, acute hemorrhage, extra-axial fluid collection or acute lobar infarct. Cerebral ventricles: No ventriculomegaly. Paranasal sinuses: Mucosal thickening is noted within the maxillary antra, ethmoid air cells and frontal recesses. Mastoid air cells: Visualized mastoid air cells are well aerated. Bones: Unremarkable. No acute fracture. Soft tissues: There is right lateral periorbital soft tissue swelling. The patient is post bilateral cataract surgery. IMPRESSION: No acute intracranial process.
--- NOTE | 2025-02-18 10:08 | ED_ITS ---
Discharge Plan Disposition Patient Disposition: Xfer Short-Term Hosp Chief Complaint: PAIN Prescriptions Prescriptions: No Action aspirin 81 mg tablet,delayed release (DR/EC) 81 mg PO DAILY loratadine 10 mg tablet 10 mg PO DAILY Repatha Syringe 140 mg/mL syringe 140 mg SQ Q2W Qty: 2 4RF prasugrel HCl 10 mg tablet 10 mg PO DAILY Qty: 90 1RF Patient Comments: TAKE 1 TABLET BY MOUTH ONCE DAILY metformin 500 mg tablet See Rx Instructions .ROUTE .COMPLEX Qty: 60 2RF Dose Instruction: Take 1 tablet by mouth twice daily Rx Instructions: Take 1 tablet by mouth twice daily metoprolol tartrate 50 mg tablet See Rx Instructions .ROUTE .COMPLEX Qty: 60 2RF Dose Instruction: Take 1 tablet by mouth twice daily Rx Instructions: Take 1 tablet by mouth twice daily meloxicam 7.5 mg tablet 7.5 mg PO DAILY Qty: 90 0RF atorvastatin 80 mg tablet 80 mg PO DAILY Patient Comments: TAKE 1 TABLET BY MOUTH ONCE DAILY FOR CHOLESTEROL erythromycin 5 mg/gram (0.5 %) ointment 1 applic ophthalmic (eye) DAILY Referrals Follow up/Referrals: Provider,Referral, MD [Referring] - See instructions Clinical Impressions Clinical Impression: Acute trigeminal herpes zoster, Cellulitis, periorbital, Cellulitis of face Print Language Print Language: Macanese Discharge ED Provider: Elier Vitale General Adult HPI General Chief complaint: PAIN Stated complaint: weakness Time Seen by Provider: 02/18/25 09:50 Mode of Arrival: Wheelchair Source of Information: Patient Description of Symptoms (Recalled from ER Triage Doc. by RN): Patient reports shingles to the right side of his face and to his right eye. Complaint of eye being swollen shut with a headache for 3 days. Also reports nausea. History of Present Illness HPI narrative: Patient is a 74-year-old male with past medical history of hypertension, hyperlipidemia, hvl-dcooexs-elhmgxxaz diabetes who presents emergency department for evaluation of rash, headache, eye swelling. Onset was acute over the last 48 hours. Patient presented to [facility] where he was discharged with eyedrops, no oral medication and was told to follow-up outpatient. His swelling around his eye has gotten progressively worse causing him to become concerned and present here for continued evaluation. Headache is right-sided, hemicranial. It is difficult for him to open his eye due to swelling. No neck pain reported. There is associated nausea vomiting, no chest pain no abdominal pain, vomiting is nonbloody. Please note that above description of symptoms, in this electronic medical record under categorization of recalled from ER triage doctor by RN are reflective of an initial nursing assessment, however, is not reflective of my full history and physical exam that was personally taken and clarified. Consequentially, this preceding description of symptoms, which may include the patient's categorized chief complaint in the EMR, do not reflect my personal clinical impression, and the ultimate description of history of present illness and patient stated complaints should be deferred to this section of the note. Unless stated otherwise or congruent with this section of the note, additional signs, symptoms, or incongruence should be interpreted as inaccurate with my clinical impression. Related Data Home Medications ?Medication ?Instructions ?Recorded ?Confirmed atorvastatin 80 mg tablet 80 mg PO DAILY 09/23/24 02/12/25 erythromycin 5 mg/gram (0.5 %) eye 1 applic ophthalmic (eye) DAILY 09/23/24 02/12/25 ointment aspirin 81 mg tablet,delayed 81 mg PO DAILY 02/12/25 02/12/25 release loratadine 10 mg tablet 10 mg PO DAILY 02/12/25 02/12/25 Previous Rx's ?Medication ?Instructions ?Recorded evolocumab 140 mg/mL subcutaneous 140 mg SQ Q2W #2 mL 10/10/24 syringe (Repatha Syringe) prasugrel HCl 10 mg tablet 10 mg PO DAILY #90 tabs 12/22/24 metformin 500 mg tablet See Rx Instructions .Route 01/29/25 .COMPLEX #60 tabs metoprolol tartrate 50 mg tablet See Rx Instructions .Route 01/29/25 .COMPLEX #60 tabs meloxicam 7.5 mg tablet 7.5 mg PO DAILY #90 tabs 02/07/25 Allergies Allergy/AdvReac Type Severity Reaction Status Date / Time No Known Allergies Allergy Verified 02/12/25 13:58 [facility] Disclaimer: The information contained in this section may have been updated after the patient was seen, as this information can be updated by other users. 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 current occupational exposures/hazards: Yes caffeine: Yes Have you lived/traveled outside [place] in past 30 days?: No Contact w/someone who lives/traveled outside US past 30 days?: No Exposure to someone with infectious disease in past 14 days?: No Do you have a fever (greater than 100.4 F or 38 C)?: No Have you tested positive for COVID-19: No Exposed to someone with COVID-19 in past 14 days?: No Do you have a sore throat?: No Do you have a cough?: No Do you have any weakness?: Yes Do you have any diarrhea?: No Are you experiencing any unusual bleeding?: No Do you have any muscle aches/pain?: No Do you have any abdominal pain?: No Are you experiencing loss of taste or smell?: No Other Medical History Have you received the Flu Vaccine for this season: Yes Have you received the Pneumonia Vaccine: No ROS Obtained: Yes Systems reviewed as appropriate & no additional complaints except as documented Physical Exam General General appearance: alert and in no apparent distress Head Head exam: atraumatic, normocephalic and other (Crusted lesions in multiple stages of healing on the right forehead and eyelid. Periorbital edema and right sided cheek edema, no exophthalmos.) Eye Eye exam: Present PERRL and EOMI ENT ENT exam: Present mucous membranes moist Neck Neck exam: Present normal inspection Chest Chest inspection: Present normal inspection and symmetric chest wall rise Respiratory Respiratory exam: Present normal lung sounds bilaterally; Absent respiratory distress Cardiovascular Cardiovascular exam: Present regular rate and normal rhythm Abdominal Exam Abdominal exam: Present soft; Absent tenderness Extremities Exam Extremities exam: Present normal inspection Neurological Exam Neurological exam: Present alert, oriented X3 and CN II-XII intact; Absent motor sensory deficit Psychiatric Psychiatric exam: Present normal affect Skin Skin exam: Present warm and dry Medical Decision Making Medical Records Screening: Per USPSTF and CDC recommendations, given the prevalence of disease in our region, it is our hospital?s policy to screen for HIV and viral Hepatitis for all patients aged 18 and over and those with ongoing risk factors. [place] Inquiry Pt receiving controlled substance: No Vital Signs: 02/18/25 09:46 02/18/25 09:51 02/18/25 10:00 Temperature 98.4 F Temperature Source Oral Pulse Rate 58 L 56 L Pulse Rate [Radial] 61 Respiratory Rate 11 L 11 L Blood Pressure 154/74 H 153/71 H Blood Pressure [Right Arm] 154/74 H Blood Pressure Mean [Right Arm] 100 Blood Pressure Source [Right Arm] Automatic Cuff Blood Pressure Position [Right Arm] Sitting 02 Sat by Pulse Oximetry 98 99 97 Oxygen Delivery Method Room Air Room Air Room Air 02/18/25 10:45 Temperature Temperature Source Pulse Rate 59 L Pulse Rate [Radial] Respiratory Rate 12 Blood Pressure 142/71 H Blood Pressure [Right Arm] Blood Pressure Mean [Right Arm] Blood Pressure Source [Right Arm] Blood Pressure Position [Right Arm] 02 Sat by Pulse Oximetry 98 Oxygen Delivery Method Room Air Lab Data Lab Results 02/18/25 10:00: WBC 5.2, RBC 4.41 L, Hgb 13.9 L, Hct 40.3 L, MCV 91.4, MCH 31.5 H, MCHC 34.5, RDW 13.0, Plt Count 198, MPV 9.4, Neut % (Auto) 56.5, Lymph % (Auto) 31.7, [place] % (Auto) 10.6 H, Eos % (Auto) 0.8, Baso % (Auto) 0.2, Neut # (Auto) 3.0, Lymph # (Auto) 1.7, [place] # (Auto) 0.6, Eos # (Auto) 0.0, Baso # (Auto) 0.0, ESR 21 H, Sodium 130 L, Potassium 4.4, Chloride 92 L, Carbon Dioxide 31 H, Anion Gap 11.4, BUN 15, Creatinine 0.60 L, Estimated Creat Clear 68, Estimated GFR 132, Est GFR ( Amer) 160, Glucose 148 H, Calcium 9.1, Total Bilirubin 1.2, AST 41, ALT 46, Alkaline Phosphatase 47, Total Protein 6.9, Albumin 4.1, Globulin 2.8, Albumin/Globulin Ratio 1.5, HCV Ab ALEXI w/Rflx PCR Qn Negative, HIV Ag/Ab Combo Qual Negative 02/18/25 10:12: SARS-CoV-2 (PCR) Not detected, Influenza A Untype (PCR) Not detected, Influenza Type B (PCR) Not detected 02/18/25 10:00 02/18/25 10:00 Orders (Tests/Meds): ED MEDICATIONS Generic Name Dose Route Start Last Admin Trade Name Freq PRN Reason Stop Dose Admin Vancomycin/PEG/NADA/Lysine/Water 1.25 gm in 250 mls @ 125 mls/hr 02/18/25 10:15 Vancomycin 1.25gm/250ml (Peg) Premix IV 02/18/25 12:14 ONCE ONE Miscellaneous 1 each 02/18/25 10:15 Vancomycin Consult Request NOTAPPLIC 03/20/25 10:14 [facility]ULT [facility] Discontinued Medications Generic Name Dose Route Start Last Admin Trade Name Freq PRN Reason Stop Dose Admin Acetaminophen 1,000 mg 02/18/25 10:03 Acetaminophen 500mg Tab PO 02/18/25 10:04 ONCE ONE Fluorescein Sodium 1 mg 02/18/25 10:31 02/18/25 10:34 Fluorescein Sodium 1mg Strip OP 02/18/25 10:32 1 mg ONCE ONE Administration Acyclovir Sodium 700 mg/ 250 mls @ 250 mls/hr 02/18/25 10:04 02/18/25 10:29 Sodium Chloride IV 02/18/25 10:05 250 mls/hr ONCE ONE Administration Ampicillin Sodium/Sulbactam 100 mls @ 200 mls/hr 02/18/25 10:05 Sodium 3 gm/ Sodium Chloride IV 02/18/25 10:06 ONCE ONE Iopamidol 100 ml 02/18/25 10:31 02/18/25 10:32 Iopamidol-370 (76%);100ml Bottle IV 02/18/25 10:32 100 ml ONCE ONE Administration Ketorolac Tromethamine 30 mg 02/18/25 10:03 02/18/25 10:27 Ketorolac 30mg/Ml Vial IV 02/18/25 10:04 30 mg ONCE ONE Administration Ondansetron HCl 4 mg 02/18/25 10:07 02/18/25 10:27 Ondansetron 4mg/2ml Vial IV 02/18/25 10:08 4 mg ONCE ONE Administration Sodium Chloride 10 ml 02/18/25 10:31 02/18/25 10:32 Sodium Chloride 0.9% 10ml Syr (Rad Only) IV 02/18/25 10:32 10 ml ONCE ONE Administration Tetracaine HCl 1 ml 02/18/25 10:31 02/18/25 10:33 Tetracaine 0.5% Opth Rosalee 15ml OP 02/18/25 10:32 1 ml ONCE ONE Administration ORDERS Category Date Time Status CT head/brain wo con Stat Cat Scan 02/18/25 10:[address] orbit BI w con Stat Cat Scan 02/18/25 10:03 Completed CBC w/Auto Diff [Complete Blood Count Auto Diff] Stat Lab 02/18/25 10:00 Completed CMP [Comprehensive Metabolic Panel] Stat Lab 02/18/25 10:00 Completed ESR [Erythrocyte Sedimentation Rate] Stat Lab 02/18/25 10:00 Completed HIV Combo Stat Lab 02/18/25 10:00 Completed Hepatitis C Ab Qual. W/ RFX Stat Lab 02/18/25 10:00 Completed Rapid PCR Covid and Flu A/B Stat Lab 02/18/25 10:12 Completed Blood Culture Stat Micro 02/18/25 10:24 Received ECG Data Tracing #1: Independently interpreted by me rate is 59, rhythm is regular, right bundle branch block, no ST elevation in anatomical contiguous leads, QTc 453. Medical Decision Narrative: In summary patient is 74-year-old male with past medical history described above who presents emergency department for evaluation of facial swelling and rash. Patient is hemodynamically stable and nontoxic-appearing upon arrival, afebrile. Clinically patient has varicella-zoster virus in a V1 distribution however he has significant amount of edema in his periorbital area concerning for superimposed infection. Given this in totality treatment will be conducted immediately with vancomycin, Unasyn, acyclovir. Fluorescein stain no obvious dendritic lesions. Difficult to assess visual acuity although when the lids are held apart with paperclips he states that he has decreased vision at baseline and it is at approximately his baseline. Differential also includes orbital cellulitis, among others. Workup will be conducted with hematologic labs, CT head, CT orbits with IV contrast. With regards to his nausea vomiting abdomen is nontender imaging was considered but will be deferred. Workup will be conducted with hematologic labs and viral swab, initial interventions include Zofran. CT imaging remarkable for right periorbital and lateral facial cellulitis no intraorbital extension. The case was discussed with Dr. Mccarty [facility] regarding management graciously excepted patient for transfer for continued evaluation at this time. Procedure: Procedure performed was ocular exam with Alvarez lamp and Junior-Pen. Facilitated by topical tetracaine. Lids were everted using curved paperclips given significant amount of edema of the lids. There is a open sore on the lid margin of the superior lid. Ocular pressure 18 on the left. Pupils equally round and reactive to light. No fluorescein uptake. Dewayne negative. Patient tolerated the procedure well. There were no immediate complications. Critical Care Critical Care Time Critical Care Time: No
[2025-02-18 10:14] LABS: Albumin Level 4.1 g/dl (3.5-5.0); Chloride 92 mmol/L (98-107); Potassium 4.4 mmoL/L (3.5-5.1); Sodium 130 mmol/L (136-145)
[2025-02-18 10:15] LABS: Coronavirus 19, PCR Not Detected (NotDetected); Influenza A, PCR Not Detected (NotDetected); Influenza B, PCR Not Detected (NotDetected)
[2025-02-18 10:17] LABS: Alanine Aminotransferase 46 U/L (12-78); Albumin/Globulin Ratio 1.5 (1.1-1.8); Alkaline Phosphatase 47 U/L (38-126); Anion Gap 11.4 mEq/L (5-15); Aspartate Amino Transferase 41 U/L (17-59); Basophils % 0.2 % (0.1-2.0); Bilirubin,Total 1.2 mg/dl (0.2-1.3); Blood Urea Nitrogen 15 mg/dl (9-20); Carbon Dioxide 31 mmol/L (22.0-30.0); Creatinine Clearance Estimated 68 mL/min (50-200); Eosinophils % 0.8 % (0.1-12.0); Estimated Glomerular Filt Rate 132 ml/min (>60); GFR (African American) 160 ML/MIN (>60); Globulin 2.8 g/dL (1.3-3.2); Hematocrit 40.3 % (42.0-52.0); Hemoglobin 13.9 g/dL (14.1-18.0); Lymphocytes # 1.7 K/mm3 (0.7-4.5); Lymphocytes % 31.7 % (10-50); Mean Corpuscular HGB Conc 34.5 g/dL (31.8-35.4); Mean Corpuscular Hemoglobin 31.5 pg (27.0-31.2); Mean Corpuscular Volume 91.4 fl (80-94); Mean Platelet Volume 9.4 fl (7.4-10.4); Monocytes # 0.6 K/mm3 (0.1-1.0); Monocytes % 10.6 % (1.7-9.3); Neutrophils % 56.5 % (37.0-80.0); Platelet Count 198 K/mm3 (142-424); Red Blood Count 4.41 M/mm3 (4.60-6.20); Total Protein,Serum 6.9 g/dl (6.3-8.2); White Blood Count 5.2 K/mm3 (4.8-10.8)
[2025-02-18 10:18] LABS: Calcium 9.1 mg/dl (8.4-10.2); Glucose 148 mg/dl (74-100)
[2025-02-18] MEDS: ONDANSETRON 4MG/2ML VIAL 4 MG IV (10:27)
[2025-02-18] MEDS: KETOROLAC 30MG/ML VIAL 30 MG IV (10:27)
[2025-02-18] MEDS: ACYCLOVIR SODIUM 700 MG in 0.9 % SODIUM CHLORIDE 250 ML 250 MG IV (10:29)
[2025-02-18] MEDS: IOPAMIDOL-370 (76%);100ML BOTTLE 100 ML IV (10:32)
[2025-02-18] MEDS: SODIUM CHLORIDE 0.9% 10ML SYR (RAD ONLY) 10 ML IV (10:32)
[2025-02-18] MEDS: TETRACAINE 0.5% OPTH SOL 15ML OP (10:33)
[2025-02-18] MEDS: FLUORESCEIN SODIUM 1MG STRIP 1 MG OP (10:34)
[2025-02-18 10:42] LABS: Erythrocyte Sedimentation Rate 21 mm/hr (0-20)
[2025-02-18 11:01] LABS: HIV Combo NEGATIVE (Negative)
[2025-02-18 11:09] LABS: Hepatitis C Ab Qual. W/ RFX NEGATIVE (Negative)
--- NOTE | 2025-02-18 11:39 | PC.NURSE ---
currently on phone with for transfer for V1 shingles and pariorbital cellultis. Dr Vitale is on phone at this time.
[2025-02-18] MEDS: ACETAMINOPHEN 500MG TAB 1000 MG PO (11:47)
[2025-02-18] MEDS: AMPICILLIN/SULBACTAM 3 GM in 0.9 % SODIUM CHLORIDE 100 ML IV (11:47)
[2025-02-18] MEDS: VANCOMYCIN/WATER FOR INJ (PEG) 1.25 GM/250 ML PIGGYBACK IV (12:06)
--- OUTSIDE RECORDS SUMMARY | 2025-02-22 19:59 | XMS_ITS | Continuity of Care Document ---
Author Organization [facility] Phone Care Team Providers Care Utility Appraiser Name Role Phone NANCY MASSEY Primary Attending Unavailable NANCY MASSEY Admitting Unavailable NO, DEFINED P Unavailable Unavailable NO, DEFINED P Primary Care Unavailable ALLERGIES AND ADVERSE REACTIONS ALLERGIES AND ADVERSE REACTIONS Code System Allergy Substance Adverse Reaction Date Reaction (Severity) Comment Status Reported By Updated By No Known Allergies [id number] on February 15, 2025 1:29:26 PM [facility] [[email or web address]] RESULTS Patient: MAUDE TOPETE Date of : [birth year] LABORATORY RESULTS Information is not available LABORATORY NARRATIVE RESULTS Information is not available RADIOLOGY RESULTS ORDER 100: CT BRAIN W/O ([place]: 874[address]-2) ORDER DATE: February 15, 2025 1:43:00 PM [facility] [[email or web address]] PERFORMING LAB: [address] [id number] Final Result Date: February 15, 2025 1:50:[address] [address] Name: EFREM SANTORO Exam Date: 02/15/2025 : 1950 Age 74 years Gender: M Physician: SIDRA JARAMILLO Facility: [facility] Facility HSV: Outpatient Exam: CT BRAIN W/O Blank exam A CT HEAD WITHOUT IV CONTRAST performed on 02/15/2025 8:50 AM CDT. INDICATION: Head Trauma with pain TECHNIQUE: Noncontrast CT head. Dose modulation, automated exposure control, and/or iterative reconstruction technique used for dose reduction. COMPARISON: None available. FINDINGS: * No evidence of acute intracranial hemorrhage, territorial infarction or space-occupying mass. * No hydrocephalus, cisternal effacement, or midline shift. * No intrasinus or intramastoid fluid. Functional endoscopic sinus surgery with mild to moderate mucosal thickening of the ethmoids and maxillary sinuses and mild mucosal thickening of the frontal sinuses. * Calvarium, skull base, and visualized facial bones appear intact. * Intact globes without retrobulbar hematoma. IMPRESSION: 1. No acute traumatic intracranial findings. 2. Chronic sinusitis post functional endoscopic sinus surgery. Electronically signed by: Thom Elias DO 02/15/2025 10:03 AM EDT Dictated By: Thom Elias Transcribed By: Transcribed On: 02/15/2025 9:50 AM Electronically signed by: Thom Elias 02/15/2025 Thank you for referring EFREM SANTORO to [facility]. Legally authenticated by ROBERTA MESSER 2025-02-15 09:50:38 PATHOLOGY NARRATIVE RESULTS Information is not available MICROBIOLOGY RESULTS No Micro Labs/Results Exist for Patient BLOOD ADMIN RESULTS Information is not available MEDICATIONS HOME MEDICATIONS Status RXNORM NDC Medication Dose Route Frequency Dates Comments Reported By Updated By Drug Treatment Unknown DISCHARGE MEDICATIONS Status RXNORM NDC Medication Dose Route Frequency Dates Comments Physician Updated By No Discharge Medication Info rmation Available INPATIENT MEDICATIONS Status RXNORM NDC Medication Dose Route Frequency Rat e Quantity Dates Comments Physician Updated By Kt inued [id number] fluorescein OPHTH STRIP 0.6 MG STRP 1.0 EA RIGHT EYE - OPHTHA LMIC ONE TIME ONLY (SCHEDULED DOSE) Start: February 15, 2025 1:59:0 0 PM [facility] [[email or web address]] End: February 15, 2025 1:59:0 0 PM [facility] [[email or web address]] COLOM NANCY INTERFAC ED on February 15, 2025 2:01:00 PM [facility] [[email or web address]] SOCIAL HISTORY SOCIAL HISTORY SNOMED-CT Social History Element Description Effective Dates Offered Cessation Comment UpdatedBy [id number] Current Tobacco smoking status Never Smoked [id number] on February 15, 2025 1:35:16 PM [facility] [[email or web address]] SOCIAL HISTORY - Gender Sex: Male SOCIAL HISTORY - Status : status i nformation is not available Intention in Next Year: intention information is not available SOCIAL HISTORY - Sexual Behavior Sexual Orientation Gender Identity SNOMED-CT Description SNO MED -CT Description Activity Level No of Partners Partner Type UpdatedBy Information is not available VITAL SIGNS PATIENT VITAL SIGNS This section displays the mo st recent value for each vital sign as of February 19, 2025 8:42:05 AM UTC Loinc Code Vital Sign Activity Date Result Updated By 8310-5 Body temperature February 15, 2025 1:33:07 PM UTC 97.8 [degF] [id number] on February 16, 2025 5:57:20 PM UTC 74575-1 Body weight Measured February 15 1:35:03 PM UTC 71.5 kg (158.0 lb) [id number] on February 15, 2025 1:35:03 PM UTC 8462-4 Diastolic blood pressure February 15, 2025 1:33:07 PM UTC 78.0 mm[Hg] [id number] on February 16, 2025 5:57:20 PM UTC 8867-4 Heart rate February 15, 2025 2:30:00 PM UTC 53 /min [id number] on February 16, 2025 5:57:29 PM UTC 95919-7 Oxygen saturation in Arterial blood by Pulse oximetry February 15, 2025 2:30:00 PM UTC 98.0 % [id number] on February 16, 2025 5:57:29 PM UTC 9279-1 Respiratory rate February 15, 2025 1:33:07 PM UTC 18 /min [id number] on February 16, 2025 5:57:20 PM UTC 8480-6 Systolic blood pressure February 15, 2025 1:33:07 PM UTC 154.0 mm[Hg] [id number] on February 16, 2025 5:57:20 PM UTC PEDIATRIC GROWTH CHART - VITAL SIGNS This section displays Head C ircumference Percentile, Weight for Length Percentile and BMI Percentile Loinc Code Pediatric Measure Age (Months) Result Updat ed By No Pediatric Growth Chart Pe rcentile Information Available. HEALTH CONCERNS Problems Concern Status Health Concern problem infor mation not available. Smoking Status Status Years Used Consumed packs p er day Health Concern smoking histo ry information not available. Family History Concern Status Health Concern family histor y information not available. ENCOUNTERS ENCOUNTER INFORMATION Reason for Visit HEAD PAIN Admission February 15, 2025 1:20:00 PM [place] [address] [facility] [id number] Discharge February 15, 2025 2:45:00 PM [place] DIS CHARGED TO HOME OR SELF CARE ENCOUNTER DIAGNOSES Notes information is not shubham ilable. Code System Diagnosis Onset Date Diagnosis information is not available. 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 [id number] on February 19, 2025 8:36:48 AM [facility] CARE TEAM Care Utility Appraiser Role NANCY MASSEY Primary Attending NANCY MASSEY Admitting DEFINED NO Referring DEFINED NO Primary Care CARE TEAM CARE orthotic assistant Role on Team Status Start Date End Date Update d By NO DEFINED PRIMARY C Referring normal February 15, 2025 1:58:59 PM UT February 15, 2025 2:45:00 PM UT [id number] on February 15, 2025 1:58:59 PM UT COLOM NANCY Attending normal February 15, 2025 1:58:59 PM UT February 15, 2025 2:45:00 PM UT [id number] on February 15, 2025 1:58:59 PM [facility] COLOM NANCY Admitting normal February 15, 2025 1:58:59 PM UT February 15, 2025 2:45:00 PM UT [id number] on February 15, 2025 1:58:59 PM UT NO DEFINED PRIMARY C PCP normal February 15, 2025 1:20:54 PM UT February 15, 2025 2:45:00 PM UT [id number] on February 15, 2025 1:58:59 PM UTC
== END 2025-02-18 12:38 | disposition short-term general hospital (02) ==
PROVIDERS: Emergency Provider Emergency Medicine; PCP Family Medicine
DX: L03.213 Periorbital cellulitis (principal); L03.211 Cellulitis of face; B02.22 Postherpetic trigeminal neuralgia; R21 Rash and other nonspecific skin eruption; R51.9 Headache, unspecified; R11.2 Nausea with vomiting, unspecified
CPT/HCPCS: 70450; 70481; 80053; 85025; 85651; 86803; 87040; 87389; 87636; 93005; 96365; 96366; 96367; 96374; 96375; 99285; J0295; J1885; J2405; J3372; Q9967

== ENCOUNTER 2025-03-12 09:42 | Outpatient (CLI) | payer MEDICARE, SELFPAY ==
[2025-03-12 10:44] LABS: Basophils % 0.5 % (0.1-2.0); Eosinophils # 0.1 Kmm3 (0.0-0.4); Eosinophils % 2.9 % (0.1-12.0); Hematocrit 40.7 % (42.0-52.0); Hemoglobin 13.5 g/dL (14.1-18.0); Lymphocytes # 1.8 K/mm3 (0.7-4.5); Lymphocytes % 40.8 % (10-50); Mean Corpuscular HGB Conc 33.2 g/dL (31.8-35.4); Mean Corpuscular Hemoglobin 31.6 pg (27.0-31.2); Mean Corpuscular Volume 95.3 fl (80-94); Mean Platelet Volume 9.5 fl (7.4-10.4); Monocytes # 0.6 K/mm3 (0.1-1.0); Monocytes % 13.8 % (1.7-9.3); Neutrophils # 1.8 K/mm3 (1.8-7.8); Neutrophils % 41.8 % (37.0-80.0); Nucleated Red Blood Cells # 0 10^3/uL; Nucleated Red Blood Cells % 0 %; Platelet Count 205 K/mm3 (142-424); Red Blood Count 4.27 M/mm3 (4.60-6.20); Red Cell Distribution Width 13.9 % (11.5-17.5); Red Cell Distribution Width-SD 48.7 fL; White Blood Count 4.4 K/mm3 (4.8-10.8)
[2025-03-12 11:32] LABS: Alanine Aminotransferase 35 U/L (12-78); Albumin Level 4.1 g/dl (3.5-5.0); Alkaline Phosphatase 45 U/L (38-126); Aspartate Amino Transferase 28 U/L (17-59); Bilirubin,Direct 0.1 mg/dl (0.0-0.4); Bilirubin,Indirect 0.7 mg/dL (0.0-0.9); Bilirubin,Total 0.8 mg/dl (0.2-1.3); Bilirubin,Unconjugated 0.7 mg/dL (0.0-1.1); Blood Urea Nitrogen 12 mg/dl (9-20); Calcium 9.4 mg/dl (8.4-10.2); Carbon Dioxide 29 mmol/L (22.0-30.0); Chloride 102 mmol/L (98-107); Chol/HDL Ratio 1.8 (1-3.5); Cholesterol 66 mg/dl (140-200); Estimated Glomerular Filt Rate 111 ml/min (>60); GFR (African American) 134 ML/MIN (>60); Glucose 120 mg/dl (74-100); HDL Cholesterol 37 mg/dl (40-60); Sodium 137 mmol/L (136-145); Total Protein,Serum 6.5 g/dl (6.3-8.2); Triglycerides 68 mg/dl (30-150); VLDL Cholesterol 14 mg/dL (0-40)
[2025-03-12 11:44] LABS: Direct LDL Cholesterol < 30.00 mg/dL (100-129)
[2025-03-12 11:51] LABS: Free T4 (Free Thyroxine) 0.84 ng/dl (0.78-2.19)
[2025-03-12 12:02] LABS: Thyroid Stimulating Hormone 0.88 uIU/mL (0.465-4.68)
== END 2025-03-12 23:59 | disposition home or self-care (01) ==
LOC: LAB 09:43
PROVIDERS: PCP Family Medicine; Visit Provider Physician Assistant
DX: I11.9 Hypertensive heart disease without heart failure (principal); I25.110 Atherosclerotic heart disease of native coronary artery with unstable angina pectoris; E11.59 Type 2 diabetes mellitus with other circulatory complications; E78.2 Mixed hyperlipidemia; I65.23 Occlusion and stenosis of bilateral carotid arteries
CPT/HCPCS: 36415; 80048; 80061; 80076; 84439; 84443; 85025

== ENCOUNTER 2025-08-14 11:50 | Outpatient (CLI) | payer MEDICARE, SELFPAY ==
--- OUTSIDE RECORDS SUMMARY | 2025-08-14 11:52 | XMS_ITS | Clinical Summary ---
Author Organization [facility] Address [address] [place] [address] Care Team Providers Care Receipt And Report Clerk Name Role Phone Pcp, No Primary Care Provider Unavailabl e Allergies No known active allergies Medications erythromycin (Romycin) 5 MG/GM ophthalmic ointment Apply 1 Application to right eye in the morning and 1 Application at noon and 1 Application in the evening and 1 Application before bedtime. ~1 cm instilled into affected eye 4 times per day x 7 days (quantity = 3.5 g tube). 3.5 g 5 Active Additional Information Patient not taking.Reported on 03/06/2025 atorvastatin (Lipitor) 80 MG tablet take 1 tablet by mouth once daily for cholesterol Active Repatha 140 MG/ML solution prefilled syringe 5 Active metFORMIN (Glucophage) 500 MG tablet Take 1 tablet by mouth 2 (two) times a day. Active aspirin 81 MG EC tablet Take 1 tablet by mouth 1 (one) time each day. Active lisinopril-hydr oCHLOROthiazide 20-25 MG tablet Take 1 tablet by mouth daily. 5 Active prasugrel (Effient) 10 MG tablet Take 1 tablet by mouth daily. Active metoprolol tartrate (Lopressor) 50 MG tablet Take 1 tablet by mouth 2 (two) times a day. 5 Active loratadine (Claritin) 10 MG tablet Take 1 tablet by mouth 1 (one) time each day. Active meloxicam (Mobic) 7.5 MG tablet Take 1 tablet by mouth daily. 5 Active Family History Medical History Relation Name Comments Amblyopia Father Amblyopia Sister Relation Name Status Comments Father Sister Social History Tobacco Use Types Packs/Day Years Used Date Smoking Tobacco: Never Passive Smoke Exposure: Current Smokeless Tobacco: Never Tobacco Cessation:Counseling Given: Not Answered Sex and Gender Information Value Date Recorded Sex Assigned at Not on file Legal Sex Male 11:38 AM EDT Gender Identity Not on file Sexual Orientation Not on file Last Filed Vital Signs Vital Sign Reading Time Taken Comments Blood Pressure 134/68 02/18/2025 7:00 PM EDT Pulse 59 02/18/2025 7:00 PM EDT Temperature 36.6 C (97.8 F) 02/18/2025 5:48 PM EDT Respiratory Rate 21 02/18/2025 7:00 PM EDT Oxygen Saturation 97% 02/18/2025 7:00 PM EDT Inhaled Oxygen Concentration - - Weight 74.8 kg (164 lb 14.5 oz) 02/18/2025 2:20 PM EDT Height - - Body Mass Index - - Plan of Treatment Health Maintenance Due Date Last Done Comments [facility]-Depression Screening 1950 [facility]-Hepatitis C Screening 1950 [facility]-Medicare Annual Wellness (AWV) 1950 [facility]-/Child/Adol SDOH Screenings 1950 [facility]- SDOH Screenings 1969 [facility]-Adult SDOH Screenings 1969 CT Colonography 1996 Colonoscopy 1996 FIT-DNA 1996 FIT 1996 FOBT 1996 Sigmoidoscopy 1996 [facility]-Colorectal Cancer Screening 1996 [facility]-Zoster Vaccines (1 of 2) 2001 [facility]-Pneumococcal Vaccine: 50+ Years (2 of 2 - PCV20 or PCV21) 09/22/2018 09/22/2017 IAR-QMITQ-25 Vaccine (2 - season) 2025 11/12/2021 [facility]-Influenza Vaccine (#1) 07/16/202510/21, 09/20/2023, 08/31/2022, Additional history exists [facility]-RSV Vaccine: 60+ Years or (1 - 1-dose 75+ series) 2026 [facility]-DTaP,Tdap,and Td Vaccines (2 - Td or Tdap) 04/26/2031 04/26/2021 [facility]-Hepatitis A Vaccines Aged Out 10/25/2018 No longer eligible based on patient's age to complete this topic HPV Vaccines Aged Out No longer eligi ble based on patient's age to complete this topic [facility]-HIB Vaccines Aged Out No longer e ligible based on patient's age to complete this topic [facility]-IPV Vaccines Aged Out No longer e ligible based on patient's age to complete this topic [facility]-Rotavirus Vaccines Aged Out No lo nger eligible based on patient's age to complete this topic Insurance MEDICARE Care Teams Receipt And Report Clerk Relationship Specialty Start Date End Date Walter, [place] [address] PCP - General Family Medicine 02/18/25
--- OUTSIDE RECORDS SUMMARY | 2025-08-14 11:52 | XMS_ITS | Clinical Summary ---
Author Organization [facility] Address [address] [place] [address] Care Team Providers Care Certified Surgical Tech/First Assistant Name Role Phone Unavailable Primary Care Provider Unavailabl e Social History Tobacco Use Types Packs/Day Years Used Date Smoking Tobacco: Never Assessed Abuse Screen Answer Date Recorded Unsafe at Home or Work/School Not on file Feels Threatened by Someone? Not on file 07/2023 Does Anyone Keep You from Co ntacting Others or Doint Things Outside the Home? Not on file 08/23/2023 Physical Sign of Abuse Present Not on file 1 Housing Stability Answer Date Recorded Current Living Arrangements Not on file 07/2023 Potentially Unsafe Housing Conditions Not on carlton e 08/23/2023 Family and Community Support Answer Lloyd e Recorded Help with Day-to-Day Activities Not on file 08/23/2023 Lonely or Isolated Not on file 08/23/2023 Employment Answer Date Recorded Do you want help finding or keeping work or a kristie b? Not on file 08/23/2023 Disabilities Answer Date Recorded Concentrating, Remembering, or Making Decisions Difficulty Not on file 08/23/2023 Doing Errands Independently Difficulty Not on fi le 08/23/2023 Education Answer Date Recorded Help with school or training? Not on file Preferred Language Not on file 08/23/2023 Sex and Gender Information Value Date Recorded Sex Assigned at Not on file Legal Sex Male 10:54 AM EDT Gender Identity Not on file Sexual Orientation Not on file Plan of Treatment Health Maintenance Due Date Last Done Comments ANNUAL PHYSICAL 1950 HEPATITIS C SCREENING 1950 TDAP/TD VACCINES (1 - Tdap) 1970 COLOGUARD 1996 COLON CANCER SCREENING 5 YEAR SIGMOIDOSCOPY 1996 COLONOSCOPY 1996 [address] CANCER SCREENING 1996 CT COLONOGRAPHY 1996 FECAL OCCULT BLOOD TEST 1996 FIT Testing (1 year) 1996 Pneumococcal Vaccine 50+ (1 of 1 - PCV) 2001 ZOSTER VACCINE (1 of 2) 2001 AAA SCREEN ONCE 2016 INFLUENZA VACCINE 06/15/2025 COVID-19 Vaccine ( season) 2025
--- OUTSIDE RECORDS SUMMARY | 2025-08-14 11:52 | XMS_ITS | Encounter Summary ---
Author Organization [facility] Address [address] [place] [address] Care Team Providers Care Hotel Assistant Manager Name Role Phone Pcp, No Primary Care Provider Unavailabl e Encounter Details Date Type Department Care Team (Late st Contact Info) Description 02/18/2025 Ophth Exam [facility] [address] [place] [address] Zofia Trejo MD [address] [place] [address] Social History Tobacco Use Types Packs/Day Years Used Date Smoking Tobacco: Never Assessed Sex and Gender Information Value Date Recorded Sex Assigned at Not on file Legal Sex Male 11:38 AM EDT Gender Identity Not on file Sexual Orientation Not on file documented as of this encounter Functional Status * Calculated C-SSRS Risk Score (Lifetime/Recent) Answer Date of Assessment Author No Risk Indicated 02/18/2025 2:20 PM EDT Sofya Wood RN * Question Answer Date of Assessment Author 1. Wish to be (Past 1 Month) No 025 2:20 PM EDT Sofya Wood RN 2. Non-Specific Active Suici maria e Thoughts (Past 1 Month) No 02/18/2025 2:20 PM EDT Sofya Wood RN 6. Suicidal Behavior (Lifetime) No 2:20 PM EDT Sofya Wood RN documented as of this encounter Plan of Treatment Not on file documented as of this encounter Visit Diagnoses Not on filedocumented in this encounter Additional Health Concerns Infection Onset Date Last Indicated Resolved Time Varicella 02/18/2025 02/18/2025 03/18/2025 9:53 PM EDT documented as of this encounter Care Teams Hotel Assistant Manager Relationship Specialty Start Date End Date Pcp, [place] [address] PCP - General Family Medicine 02/18/25 documented as of this encounter
[2025-08-14 12:14] LABS: Hematocrit 39.9 % (42.0-52.0); Hemoglobin 13.3 g/dL (14.1-18.0); Immature Granulocytes % 0.2 %; Mean Corpuscular HGB Conc 33.3 g/dL (31.8-35.4); Mean Corpuscular Hemoglobin 31.2 pg (27.0-31.2); Mean Corpuscular Volume 93.7 fl (80-94); Nucleated Red Blood Cells % 0 %; Platelet Count 189 K/mm3 (142-424); Red Blood Count 4.26 M/mm3 (4.60-6.20); Red Cell Distribution Width-SD 45.7 fL; White Blood Count 4.4 K/mm3 (4.8-10.8)
[2025-08-14 12:50] LABS: Alanine Aminotransferase 32 U/L (12-78); Albumin Level 3.9 g/dl (3.5-5.0); Alkaline Phosphatase 58 U/L (38-126); Anion Gap 13.1 mEq/L (5-15); Aspartate Amino Transferase 25 U/L (17-59); Bilirubin,Direct 0.3 mg/dl (0.0-0.4); Bilirubin,Indirect 0.6 mg/dL (0.0-0.9); Bilirubin,Total 0.9 mg/dl (0.2-1.3); Bilirubin,Unconjugated 0.7 mg/dL (0.0-1.1); Blood Urea Nitrogen 9 mg/dl (9-20); Calcium 9.3 mg/dl (8.4-10.2); Carbon Dioxide 29 mmol/L (22.0-30.0); Chloride 99 mmol/L (98-107); Cholesterol 67 mg/dl (140-200); Creatinine,Serum 0.60 mg/dl (0.66-1.25); Estimated Glomerular Filt Rate 132 ml/min (>60); GFR (African American) 160 ML/MIN (>60); Glucose 129 mg/dl (74-100); HDL Cholesterol 37 mg/dl (40-60); Magnesium 1.8 mg/dl (1.6-2.3); Potassium 4.1 mmoL/L (3.5-5.1); Sodium 137 mmol/L (136-145); Total Protein,Serum 5.8 g/dl (6.3-8.2); Triglycerides 58 mg/dl (30-150)
[2025-08-14 13:05] LABS: Free T4 (Free Thyroxine) 0.89 ng/dl (0.78-2.19)
[2025-08-14 13:20] LABS: Thyroid Stimulating Hormone 1.06 uIU/mL (0.465-4.68)
== END 2025-08-14 23:59 | disposition home or self-care (01) ==
LOC: LAB 11:51
PROVIDERS: PCP Family Medicine; Visit Provider Physician Assistant
DX: I25.10 Atherosclerotic heart disease of native coronary artery without angina pectoris (principal); I10 Essential (primary) hypertension; E78.5 Hyperlipidemia, unspecified
CPT/HCPCS: 36415; 80048; 80061; 80076; 83735; 84439; 84443; 85025

== ENCOUNTER 2025-10-30 08:21 | Day surgery (SDC) | payer MEDICARE, SELFPAY ==
[2025-10-30 08:59] VITALS: BMI 21.6
[2025-10-30 09:07] VITALS: BP 135/91; PULSE 53; RESP 18; TEMP 36.6; O2SAT 99
[2025-10-30 09:10] LABS: POC Glucose,Bedside 133 gm/dL (70-110)
[2025-10-30] MEDS: LACTATED RINGERS 1000ML 1,000 ML 50 ML IV (09:18)
--- NOTE | 2025-10-30 09:21 | EXP.GEN.HP ---
HPI HPI HPI: This is a 75-year-old gentleman who presents for colonoscopy. His most recent colonoscopy was in September 2019 at which time visualization was somewhat limited by moderate tortuosity and moderate spasticity. Hemorrhoidal tags noted. Adenomatous polyps of the cecum and hepatic flexure (x 2) were removed. [facility] Disclaimer: The information contained in this section may have been updated after the patient was seen, as this information can be updated by other users. Medical History (Updated 10/30/25 @ 09:22 by Kenneth Goddard MD) Migraine Screening for colon cancer Tubular adenoma Post herpetic neuralgia Left hand pain Carotid artery disease HLD (hyperlipidemia) Atypical angina Abnormal electrocardiogram [ECG] [EKG] Diabetes Diabetes mellitus Surgical History History of sinus surgery History of heart artery stent Hx of cardiac cath Family History Family history of heart disease Social History Smoking Status: Former smoker second hand exposure: No alcohol intake: former substance use type: denies use current occupational status: employed and other Travel in the last 8 weeks?: None household members: spouse housing: house 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[employer] current occupational exposures/hazards: Yes caffeine: Yes Have you lived/traveled outside US in past 30 days?: No Contact w/someone who lives/traveled outside US past 30 days?: No Exposure to someone with infectious disease in past 14 days?: No Do you have a fever (greater than 100.4 F or 38 C)?: No Have you tested positive for COVID-19?: Yes Exposed to someone with COVID-19 in past 14 days?: No Do you have a sore throat?: No Do you have a cough?: No Do you have any weakness?: No Are you experiencing any nausea/vomitting?: No Do you have any diarrhea?: No Are you experiencing any unusual bleeding?: No Do you have any muscle aches/pain?: No Do you have any abdominal pain?: No Are you experiencing loss of taste or smell?: No Other Medical History Have you received the Flu Vaccine for this season: Yes Have you received the Pneumonia Vaccine: Yes Review of Systems Review of Systems Review of systems:: pertinent systems reviewed and negative unless documented below Meds Home Medications and Allergies Home Medications ?Medication ?Instructions ?Recorded ?Confirmed ?Type aspirin 81 mg tablet,delayed 81 mg PO DAILY 02/12/25 10/30/25 History release loratadine 10 mg tablet 10 mg PO DAILY 02/12/25 10/30/25 History pregabalin 50 mg capsule 50 mg PO TID #30 caps 04/02/25 10/30/25 Rx lisinopril 20 1 tab PO DAILY #90 tabs 07/04/25 10/30/25 Rx mg-hydrochlorothiazide 25 mg tablet atorvastatin 80 mg tablet 80 mg PO DAILY #90 tabs 08/03/25 10/30/25 Rx metformin 500 mg tablet See Rx Instructions .Route 08/03/25 10/30/25 Rx .COMPLEX #180 tabs metoprolol tartrate 50 mg tablet See Rx Instructions .Route 08/03/25 10/30/25 Rx .COMPLEX #180 tabs evolocumab 140 mg/mL subcutaneous 140 mg SQ Q2W #2 mL 09/21/25 10/30/25 Rx syringe (Repatha Syringe) meloxicam 7.5 mg tablet 7.5 mg PO NEEDED PRN Pain, 10/30/25 10/30/25 History Moderate prasugrel HCl 10 mg tablet 10 mg PO DAILY 10/30/25 10/30/25 History (Effient) New Prescriptions to Start Prescriptions: Allergies Allergy/AdvReac Type Severity Reaction Status Date / Time No Known Allergies Allergy Verified 10/30/25 09:03 Exam Data for Last 24 hours Vital signs and Labs for Last 24 Hours: Temp Pulse Resp BP Pulse Ox O2 Del Method 97.8 F 53 L 18 135/91 H 99 Room Air 10/30/25 09:07 10/30/25 09:07 10/30/25 09:07 10/30/25 09:07 10/30/25 09:07 10/30/25 09:07 Laboratory Results - last 24 hr 10/30/25 09:03: POC Glucose 133 H I & O for Last 24 hours: Intake & Output 10/27/25 10/28/25 10/29/25 10/30/25 11:59 11:59 11:59 11:59 Weight 155 lb Constitutional Constitutional: no acute distress *Routine HEENT Exam Head: Present normocephalic Eye: Present EOMI ENT: Present mucous membranes moist *Routine Neck Exam Neck: Present full ROM *Routine Respiratory Exam Respiratory: Absent respiratory distress *Routine Cardiovascular Exam Cardiovascular: Absent tachycardia *Routine Abdominal Exam Abdominal: Present soft *Routine Rectal Exam Rectal:: deferred *Routine Genitalia Exam Genitalia:: deferred *Routine Extremities Exam Extremities: Present full ROM *Routine Skin Exam Skin: Absent erythema *Routine Neurological Exam Neurological: Present alert Results Results Lab Results Last 24 Hours:: Laboratory Results - last 24 hr 10/30/25 09:03: POC Glucose 133 H Assessment and Plan *Assessment and plan (1) History of colon polyps: Status: Acute Category: Medical Code(s): Z86.0100 - Personal history of colon polyps, unspecified Plan: Colonoscopy today I have discussed the risks and benefits including, but not limited to: Bleeding Infection Damage to surrounding tissue Inherent risks of sedation The patient agrees to proceed.
--- NOTE | 2025-10-30 09:22 | P.PCN_ITS ---
Procedure: Date: 10/30/25 Patient Date of :: 1950 Procedure Performed:: Colonoscopy Indications:: History of colon polyps Note: Colonoscopy in September 2019 was somewhat complicated by moderate tortuosi ty and moderate spasticity. Hemorrhoidal tags noted. Adjacent hepatic flexure adenomas and an adenoma of the cecum were excised. Performing Provider:: Kenneth Goddard MD Referring Provider:: . Sedation:: Monitored anesthesia care Procedure:: After informed consent was obtained the patient was taken to the endoscopy suite. Sedation ensued after the patient was transferred to the left lateral decubitus position. Pulse, blood pressure, and oxygen saturation were monitored throughout the procedure. Digital rectal exam revealed no significant abnormality. The colonoscope was placed in position. The entire colon was evaluated. The colonoscope was carefully removed and the patient was transferred to recovery in stable condition. Please see findings and specimens below for detail. Findings:: Bowel preparation fair to moderate Moderate spasticity Moderate tortuosity Hemorrhoidal tags Specimens:: None Recommendations:: Repeat colonoscopy in 3-5 years secondary to history of polyps, fair to moderate bowel preparation, spasticity, and tortuosity. Complications:: No immediate Estimated blood obtained (mL): 0 Colonoscopy Component Colonoscopy Component Was a colonoscopy performed during today's procedure?: Yes Recommended follow up colonoscopy of at least 10 years?: No If no, follow up colonoscopy recommended in ___ years?: (See above) Reason for not recommending >/= 10 yr follow-up interval?: (See above)
--- NOTE | 2025-10-30 09:27 | EXP.ANES.CKL ---
[facility] Disclaimer: The information contained in this section may have been updated after the patient was seen, as this information can be updated by other users. Medical History (Updated 10/30/25 @ 09:22 by Kenneth Goddard MD) Migraine Screening for colon cancer Tubular adenoma Post herpetic neuralgia Left hand pain Carotid artery disease HLD (hyperlipidemia) Atypical angina Abnormal electrocardiogram [ECG] [EKG] Diabetes Diabetes mellitus Surgical History History of sinus surgery History of heart artery stent Hx of cardiac cath Family History Other Family history of heart disease Social History Smoking Status: Former smoker second hand exposure: No alcohol intake: former substance use type: denies use current occupational status: employed and other Travel in the last 8 weeks?: None household members: spouse housing: house 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[employer] current occupational exposures/hazards: Yes caffeine: Yes Have you lived/traveled outside US in past 30 days?: No Contact w/someone who lives/traveled outside US past 30 days?: No Exposure to someone with infectious disease in past 14 days?: No Do you have a fever (greater than 100.4 F or 38 C)?: No Have you tested positive for COVID-19?: Yes Exposed to someone with COVID-19 in past 14 days?: No Do you have a sore throat?: No Do you have a cough?: No Do you have any weakness?: No Are you experiencing any nausea/vomitting?: No Do you have any diarrhea?: No Are you experiencing any unusual bleeding?: No Do you have any muscle aches/pain?: No Do you have any abdominal pain?: No Are you experiencing loss of taste or smell?: No [facility] Anesthesia Checklist Patient Identification Patient Identification: Arm Band Structural Data Admitted From: Home Planned Operative Procedure/s: Colonoscopy Consent for Planned Operative Procedure(s) Verified: Yes Verified Documents: Surgical Consent and History and Physical NPO Status Verified Time NPO: 00:00 Additional verifications Anesthesia Reactions: No Hx Blood Transfusions: Yes (possibly years ago 7 y/o. Doesn't remember, but told yes) Blood Transfusion Reaction: No Airway Assessment Mallampati Score:: Class II C-Spine Mobility Assessed: Yes TMJ Mobility Assessed: Yes Dentition: Dentures-good fit (upper partial removed) Neurological Assessment Level of Consciousness: Awake, Alert and Appropriate Anesthesia Plan Anesthesia Risk discussed: Yes Anesthesia Plan: Verified ASA Class: III Anesthesia Type: MAC
[2025-10-30 10:07] VITALS: BP 106/57; PULSE 54; RESP 18; TEMP 36.2; O2SAT 98
[2025-10-30 10:17] VITALS: BP 147/56; PULSE 56; RESP 18; O2SAT 98
[2025-10-30 10:27] VITALS: BP 119/66; PULSE 54; RESP 18; O2SAT 98
[2025-10-30 10:37] VITALS: BP 123/68; PULSE 62; RESP 18; O2SAT 98
== END 2025-10-30 10:37 | disposition home or self-care (01) ==
PROVIDERS: PCP Family Medicine; Visit Provider Surgery
PROC: 0DJD8ZZ Inspection of Lower Intestinal Tract, Via Natural or Artificial Opening Endoscopic (ICD-10-PCS; principal; 2025-10-30 09:30)
DX: Z12.11 Encounter for screening for malignant neoplasm of colon (principal); Z86.0100 Personal history of colon polyps, unspecified; K64.4 Residual hemorrhoidal skin tags
CPT/HCPCS: G0105; 82962; J2003; J2704; J7120